=== PATIENT | female | born 1955 | race African-American/Black ===

== ENCOUNTER 2016-09-09 11:45 | Emergency (ER) | payer OTHER ==
[~2016-09-09] VITALS: Ht 167.6 cm; Wt 125.0 kg
[~2016-09-09 11:45] MED LIST: ASPI81TA21 PO; FLAG500T PO; LEVA500T33 PO; LISI20 PO; LORTA5 PO; NORC7.5T PO; PROT40TA PO
[2016-09-09 11:47] VITALS: BP 191/111; PULSE 58; RESP 17; TEMP 97.5; O2SAT 100
[2016-09-09] MEDS ORDERED: SODIUM CHLOR 0.9% 1000 ML INJ 1,000 ML IV SCH (12:01)
[2016-09-09] MEDS ORDERED: FAMOTIDINE 20 MG/2 ML VIAL IV PUSH ONE (12:15)
[2016-09-09] MEDS ORDERED: SODIUM CHLORIDE 0.9% FLUSH 10 ML FLUSH IV FLUSH PRN (12:15)
[2016-09-09] MEDS ORDERED: MORPHINE SULFATE 8 MG/ML INJ IV PUSH ONE (12:15)
[2016-09-09] MEDS ORDERED: ONDANSETRON HCL 4 MG/2 ML VIAL IVP ONE (12:15)
[2016-09-09] MEDS: METOCLOPRAMIDE INJ 10 MG in SODIUM CHLORIDE 0.9% INJ 50 ML IV ONE ×2 (12:45→12:56)
[2016-09-09 12:58] VITALS: BP 182/99; PULSE 62; RESP 15; O2SAT 100
[2016-09-09 13:15] LABS: AUTOMATED NEUTROPHIL # 7.2 TH/MM3 (1.8-7.7); BASOPHIL % 0.2 % (0.0-2.0); EOSINOPHIL # 0.1 TH/MM3 (0-0.4); EOSINOPHIL % 0.9 % (0.0-4.0); HEMO FLAGS DIFF FINAL; LYMPH % 17.4 % (9.0-44.0); LYMPHOCYTE # 1.7 TH/MM3 (1.0-4.8); MEAN CELL VOLUME 78.5 FL (80.0-100.0); MEAN CORPUSCULAR HEMOGLOBIN 25.9 PG (27.0-34.0); MEAN CORPUSCULAR HGB CONC 32.9 % (32.0-36.0); MONO % 6.1 % (0.0-8.0); NEUT % 75.4 % (16.0-70.0); PLATELET COUNT 238 TH/MM3 (150-450); RED BLOOD COUNT 4.71 MIL/MM3 (4.00-5.30); RED CELL DISTRIBUTION WIDTH 16.6 % (11.6-17.2); WHITE BLOOD COUNT 9.6 TH/MM3 (4.0-11.0)
[2016-09-09 13:23] LABS: INTERNATIONAL NORMALIZED RATIO 0.9 RATIO; PROTHROMBIN TIME - PATIENT 10.3 SEC (9.8-11.6)
[2016-09-09 13:34] LABS: ANION GAP 9 MEQ/L (5-15); AST (GOT) 15 U/L (15-37); BICARBONATE 20.7 MEQ/L (21.0-32.0); BLOOD UREA NITROGEN 11 MG/DL (7-18); CHLORIDE 111 MEQ/L (98-107); GLOMERULAR FILTRATION RATE 62 ML/MIN (>89); POTASSIUM 4.2 MEQ/L (3.5-5.1); SODIUM (NA) 141 MEQ/L (136-145)
[2016-09-09 13:35] LABS: ALT (GPT) 27 U/L (10-53)
[2016-09-09 13:36] VITALS: BP 152/72; PULSE 60; RESP 15; O2SAT 99
[2016-09-09 13:39] LABS: ALKALINE PHOSPHATASE 113 U/L (45-117); INDIRECT BILIRUBIN 0.5 MG/DL (0.0-0.8); TOTAL BILIRUBIN ADULT 0.6 MG/DL (0.2-1.0)
[2016-09-09 14:13] LABS: BLOOD, URINE NEG (NEG); COMMENT (UR) CULT NOT INDICATED; CULTURE IF INDICATED CULT NOT INDICATED; GLUCOSE,URINE NEG (NEG); KETONE, URINE NEG (NEG); MUCUS URINE FEW /lpf (OCC); NITRITE,URINE NEG (NEG); SQUAMOUS EPITHELIAL CELL URINE 7 /hpf (0-5); URINE COLOR YELLOW (YELLW/STRAW)
[2016-09-09] MEDS ORDERED: ASPI81TA81 PO (14:32)
[2016-09-09] MEDS ORDERED: AMLO10TA2 PO (14:32)
--- NOTE | 2016-09-09 16:00 | PD ---
HPI Chief Complaint: GI Complaint Time Seen by Provider: 11:55 Travel History International Travel<30 days: No Contact w/Intl Traveler<30days: No Traveled to known affect area: No History of Present Illness HPI Patient is a 60-year-old female comes in complaining of epigastric pain as well as nausea or vomiting. She says this usually happens about once a year. She says she had a tumor removed from that area in 2009. She says she has been told that sometimes that tissue grows in that area and gives her problems. She says this started this morning. She last ate some grits last night. She denies fever, but has had chills. She also reports some diarrhea today. She denies any chest pain or shortness of breath. PFSH Past Medical History Arthritis: Yes Asthma: No Atrial Fibrillation: No Autoimmune Disease: No Blood Disorders: No Anxiety: No Depression: No Heart Rhythm Problems: No Cancer: Yes Cardiac Catheterization: No Cardiovascular Problems: Yes (ENLARGED HEART) High Cholesterol: No Chemotherapy: No Chest Pain: Yes Congestive Heart Failure: No COPD: No Cerebrovascular Accident: Yes (TIA) Diabetes: No Diminished Hearing: No Endocrine: No Gastrointestinal Disorders: Yes GERD: Yes Glaucoma: No Genitourinary: No Headaches: Yes Hiatal Hernia: No Hypertension: Yes Immune Disorder: No Implanted Vascular Access Dvce: Yes Kidney Stones: No Musculoskeletal: No Neurologic: Yes (TIAS X3 2009) Psychiatric: No Reproductive: No Respiratory: No Immunizations Current: Yes Migraines: Yes Radiation Therapy: No Renal Failure: No Seizures: No Sickle Cell Disease: No Sleep Apnea: No Thyroid Disease: No Ulcer: Yes Tetanus Vaccination: < 5 Years PNEUMOCCOCAL Vaccine (Year): 2 ?: Not Menopausal: Yes : 3 Para: 3 Tubal Ligation: Yes Past Surgical History Abdominal Surgery: Yes AICD: No Appendectomy: Yes Arteriovenous Shunt: No Body Medical Devices: HARDWARE RIGHT ANKLE Cardiac Surgery: No Section: Yes (X2 ) Cholecystectomy: Yes Coronary Artery Bypass Graft: No Ear Surgery: No Endocrine Surgery: No Eye Surgery: No Genitourinary Surgery: No Gynecologic Surgery: Yes () Insulin Pump: No Joint Replacement: No Neurologic Surgery: No Oral Surgery: Yes (TEETH REMOVED) Pacemaker: No Thoracic Surgery: No Other Surgery: Yes (GALLBLADDER REMOVED, APPENDECTOMY, ABD TUMOR,) Social History Alcohol Use: No Tobacco Use: No Substance Use: No Allergies-Medications (Allergen,Severity, Reaction): Coded Allergies: Enalapril (Verified Allergy, Severe, Swelling, 09/09/16) Seafood (Verified Allergy, Severe, Swelling, 09/09/16) SILVANO Inhibitors (Verified Allergy, Unknown, SWELLING, 09/09/16) Reported Meds & Prescriptions Reported Meds & Active Scripts Active Reported Aspir-81 (Aspirin) 81 Mg Tabdr 81 Mg PO DAILY Amlodipine (Amlodipine Besylate) 10 Mg Tab 10 Mg PO DAILY Review of Systems Except as stated in HPI: all other systems reviewed are Neg General / Constitutional: No: Fever, Chills HENT: No: Headaches, Lightheadedness Cardiovascular: No: Chest Pain or Discomfort Respiratory: No: Shortness of Breath Gastrointestinal: Positive: Nausea, Vomiting, Diarrhea, Abdominal Pain Genitourinary: No: Dysuria Musculoskeletal: No: Pain Skin: No Rash, No Change in Pigmentation Neurologic: No: Weakness, Dizziness Physical Exam Narrative GENERAL: Awake and alert, in mild distress. SKIN: Focused skin assessment warm/dry. HEAD: Atraumatic. Normocephalic. EYES: Pupils equal and round. No scleral icterus. ENT: Mucous membranes pink and moist. NECK: Trachea midline. No JVD. CARDIOVASCULAR: Regular rate and rhythm. No murmur appreciated. RESPIRATORY: No accessory muscle use. Clear to auscultation. Breath sounds equal bilaterally. GASTROINTESTINAL: Abdomen soft, nondistended. Tender to palpation of the epigastric area. No rebound or guarding. MUSCULOSKELETAL: No obvious deformities. No clubbing. No cyanosis. No edema. NEUROLOGICAL: Awake and alert. No obvious cranial nerve deficits. Motor grossly within normal limits. Normal speech. PSYCHIATRIC: Appropriate mood and affect; insight and judgment normal. Data Data Last Documented VS Vital Signs Date Time Temp Pulse Resp B/P Pulse Ox O2 Delivery O2 Flow Rate FiO2 09/09/16 13:36 60 15 152/72 99 Room Air 09/09/16 11:47 97.5 Orders Basic Metabolic Panel (Bmp) (09/09/16 12:01) Complete Blood Count With Diff (09/09/16 12:01) Lipase (09/09/16 12:01) Lactic Acid (09/09/16 12:01) Prothrombin Time / Inr (Pt) (09/09/16 12:01) Act Partial Throm Time (Ptt) (09/09/16 12:01) Urinalysis - C+S If Indicated (09/09/16 12:01) Ua Includes Microscopic (09/09/16 12:01) Ct Abd/Pel W Iv Contrast(Rout) (09/09/16 12:01) Iv Access Insert/Monitor (09/09/16 12:01) Ecg Monitoring (09/09/16 12:01) Oximetry (09/09/16 12:01) Ondansetron Inj (Zofran Inj) (09/09/16 12:15) Sodium Chlor 0.9% 1000 Ml Inj (Ns 1000 M (09/09/16 12:01) Sodium Chloride 0.9% Flush (Ns Flush) (09/09/16 12:15) Electrocardiogram (09/09/16 12:01) Famotidine Inj (Pepcid Inj) (09/09/16 12:15) Hepatic Functional Panel (09/09/16 12:01) Troponin I (09/09/16 12:01) Morphine Inj (Morphine Inj) (09/09/16 12:15) Metoclopramide Inj (Reglan Inj) (09/09/16 12:45) Iohexol 350 Inj (Omnipaque 350 Inj) (09/09/16 16:19) Acetaminophen (Tylenol) (09/09/16 17:00) Labs Laboratory Tests Test 09/09/16 09/09/16 12:30 13:45 White Blood Count 9.6 TH/MM3 Red Blood Count 4.71 MIL/MM3 Hemoglobin 12.2 GM/DL Hematocrit 37.0 % Mean Corpuscular Volume 78.5 FL Mean Corpuscular Hemoglobin 25.9 PG Mean Corpuscular Hemoglobin 32.9 % Concent Red Cell Distribution Width 16.6 % Platelet Count 238 TH/MM3 Mean Platelet Volume 9.7 FL Neutrophils (%) (Auto) 75.4 % Lymphocytes (%) (Auto) 17.4 % Monocytes (%) (Auto) 6.1 % Eosinophils (%) (Auto) 0.9 % Basophils (%) (Auto) 0.2 % Neutrophils # (Auto) 7.2 TH/MM3 Lymphocytes # (Auto) 1.7 TH/MM3 Monocytes # (Auto) 0.6 TH/MM3 Eosinophils # (Auto) 0.1 TH/MM3 Basophils # (Auto) 0.0 TH/MM3 CBC Comment DIFF FINAL Differential Comment Prothrombin Time 10.3 SEC Prothromb Time International 0.9 RATIO Ratio Activated Partial 26.0 SEC Thromboplast Time Sodium Level 141 MEQ/L Potassium Level 4.2 MEQ/L Chloride Level 111 MEQ/L Carbon Dioxide Level 20.7 MEQ/L Anion Gap 9 MEQ/L Blood Urea Nitrogen 11 MG/DL Creatinine 1.10 MG/DL Estimat Glomerular Filtration 62 ML/MIN Rate Random Glucose 115 MG/DL Lactic Acid Level 2.6 mmol/L Calcium Level 9.3 MG/DL Total Bilirubin 0.6 MG/DL Direct Bilirubin 0.1 MG/DL Indirect Bilirubin 0.5 MG/DL Aspartate Amino Transf 15 U/L (AST/SGOT) Alanine Aminotransferase 27 U/L (ALT/SGPT) Alkaline Phosphatase 113 U/L Troponin I LESS THAN 0.02 NG/ML Total Protein 7.8 GM/DL Albumin 3.8 GM/DL Lipase 175 U/L Urine Color YELLOW Urine Turbidity HAZY Urine pH 6.0 Urine Specific [place] 1.028 Urine Protein 30 mg/dL Urine Glucose (UA) NEG mg/dL Urine Ketones NEG mg/dL Urine Occult Blood NEG Urine Nitrite NEG Urine Bilirubin NEG Urine Urobilinogen LESS THAN 2.0 MG/DL Urine Leukocyte Esterase NEG Urine RBC LESS THAN 1 /hpf Urine WBC 1 /hpf Urine Squamous Epithelial 7 /hpf Cells Urine Mucus FEW /lpf Microscopic Urinalysis Comment CULT NOT INDICATED MDM Medical Decision Making Medical Screen Exam Complete: Yes Emergency Medical Condition: Yes Medical Record Reviewed: Yes Interpretation(s) ECG shows sinus bradycardia at 54, no ST elevation or depression, normal intervals Differential Diagnosis Gastritis versus gastroenteritis versus SBO versus pancreatitis Narrative Course Patient is a 60-year-old female comes in complaining of abdominal pain with nausea and vomiting. Exam shows epigastric pain. IV established, labs sent. Labs show slight elevation in her lactic acid is 2.6. There are no other abnormalities. CT abdomen and pelvis performed shows no acute abnormalities. Last 24 hours Impressions Abdomen/Pelvis CT 09/09/16 1201 Signed Impressions: Service Date/Time: Friday, September 09, 2016 16:10 - CONCLUSION: 1. 3.7 cm simple cyst in the left kidney. 2. The patient is post cholecystectomy. 3. There is been previous small bowel resection. 4. No definite abnormality to explain the patient's epigastric pain identified. Rolando Harper MD Patient given Zofran, famotidine, morphine. She reports feeling better. She is able to drink water. She'll be discharged home to follow-up with her doctors. She is advised to eat a bland diet. Advised to drink plenty of fluids. Advised to return as needed for any worsening symptoms. Diagnosis Primary Impression: Nausea & vomiting Qualified Code: R11.2 - Non-intractable vomiting with nausea, unspecified vomiting type Patient Instructions: Abdominal Pain (ED), Acute Nausea and Vomiting (ED), General Instructions Additional Instructions: Follow-up with her doctors. Drink plenty of fluids. Eat a bland diet. Return to the emergency department as needed for any worsening symptoms. Scripts Ondansetron Odt (Zofran Odt)4 Mg Tab4 Mg SL Q6HR PRN (Nausea/Vomiting) #10 TAB Ref 0 Prov:Bernice No MD 09/09/16 Disposition: 01 DISCHARGE HOME Condition: Stable Bernice No MD Sep 09, 2016 16:00
[2016-09-09] MEDS ORDERED: IOHEXOL 350 MG/ML 50 ML BTL (for RAD DIAG) IV ONE (16:19)
--- NOTE | 2016-09-09 16:26 | RADRPT ---
EXAM DATE/TIME: 09/09/2016 16:10 [facility] COMPARISON: CT ABDOMEN & PELVIS W/O CONTRAST, March 19, 2013, 4:29. INDICATIONS : Epigastric pain with nausea and vomiting today. IV CONTRAST: 82 cc Omnipaque 350 (iohexol) IV ORAL CONTRAST: No oral contrast ingested. RADIATION DOSE: 19.03 CTDIvol (mGy) MEDICAL HISTORY : Stroke. Hypertension. Cardiovascular disease SURGICAL HISTORY : Appendectomy. Cholecystectomy. ENCOUNTER: Initial ACUITY: 1 day PAIN SCALE: 5/10 LOCATION: epigastric abdomen TECHNIQUE: Volumetric scanning of the abdomen and pelvis was performed. Using automated exposure control and ad justment of the mA and/or kV according to patient size, radiation dose was kept as low as reasonably achievable to obtain optimal diagnostic quality images. DICOM format image data is available electro nically for review and comparison. FINDINGS: The limited portion of the lung base visualized is clear. The appearance of the liver, spleen, pancreas, adrenal glands and right kidney is within normal limit s. Examination of the left kidney demonstrates a 3.7 cm simple cyst. The patient is post cholecystect dorie. There is no free peritoneal air. No free intraperitoneal fluid is identified. There is no retroperito cristhian lymphadenopathy. The abdominal aorta is normal in caliber. The visualized loops of small and large bowel in the upper abdomen demonstrate postsurgical changes i n the small bowel but are otherwise unremarkable.. There is no free fluid in the pelvis. No iliac or inguinal adenopathy is seen. The reproductive organ s are intact. The visualized loops of small and large bowel are unremarkable in appearance. CONCLUSION: 1. 3.7 cm simple cyst in the left kidney. 2. The patient is post cholecystectomy. 3. There is been previous small bowel resection. 4. No definite abnormality to explain the patient's epigastric pain identified. Rolando Harper MD on September 09, 2016 at 16:21 Board Certified Radiologist. This report was verified electronically.
[2016-09-09] MEDS ORDERED: ACETAMINOPHEN 325 MG TAB PO ONE (17:00)
[2016-09-09] MEDS ORDERED: ZOFR4TAB3 SL (17:06)
[2016-09-09 17:12] VITALS: BP 165/88
--- NOTE | 2016-09-10 12:43 | EKG ---
Date Performed: 09/09/2016 Time Performed: 12:53:06 PTAGE: 60 years EKG: SINUS BRADYCARDIA POSSIBLE LEFT ATRIAL ENLARGEMENT Compared to prior tracing no significant change BORDERLINE ECG PREVIOUS TRACING : 12/20/2012 14.03 DOCTOR: Jose Davies Interpretating Date/Time 09/10/2016 12:40:24
== END 2016-09-09 17:19 | disposition home or self-care (01) ==
LOC: NEPD 11:45
DX: R11.2 Nausea with vomiting, unspecified (principal); R10.13 Epigastric pain; R19.7 Diarrhea, unspecified; R94.31 Abnormal electrocardiogram [ECG] [EKG]; I10 Essential (primary) hypertension; Z87.39 Personal history of other diseases of the musculoskeletal system and connective tissue; Z86.79 Personal history of other diseases of the circulatory system; Z87.19 Personal history of other diseases of the digestive system; Z86.69 Personal history of other diseases of the nervous system and sense organs
CPT/HCPCS: 74177; 80048; 80076; 81001; 83605; 83690; 84484; 85025; 85610; 85730; 93005; 96361; 96374; 96375; 99285; J2270; J2405; J7030; Q9967; J2765

== ENCOUNTER 2016-12-12 17:37 | Emergency (ER) | payer OTHER, MEDICAID ==
[~2016-12-12] VITALS: Ht 167.6 cm; Wt 123.0 kg
[~2016-12-12 17:37] MED LIST changes: +AMLO10TA2 PO; -ASPI81TA21 PO; +ASPI81TA81 PO; -FLAG500T PO; -LEVA500T33 PO; -LISI20 PO; -LORTA5 PO; -NORC7.5T PO; -PROT40TA PO; +ZOFR4TAB3 SL
[2016-12-12 17:39] VITALS: BP 162/91; PULSE 70; RESP 18; TEMP 98.6; O2SAT 98
--- NOTE | 2016-12-12 18:34 | PD ---
HPI Chief Complaint: Musculoskeletal Complaint Time Seen by Provider: 18:33 Travel History International Travel<30 days: No Contact w/Intl Traveler<30days: No Traveled to known affect area: No History of Present Illness HPI 61-year-old female presents to the emergency department for evaluation a right knee and right ankle pain after a trip and fall last night. Patient states that she twisted her leg and has been having difficulty ambulating on it today. She reports a constant, achy pain in her right knee, exacerbated with ambulation. She states that she is unable to bear weight on her right ankle due to the pain. Rates the pain a 6 out of 10. The pain does not radiate anywhere. She did not strike her head or lose consciousness. She has no other symptoms to report. PFSH Past Medical History Arthritis: Yes Asthma: No Atrial Fibrillation: No Autoimmune Disease: No Blood Disorders: No Anxiety: No Depression: No Heart Rhythm Problems: No Cancer: Yes Cardiac Catheterization: No Cardiovascular Problems: Yes (ENLARGED HEART) High Cholesterol: No Chemotherapy: No Chest Pain: Yes Congestive Heart Failure: No COPD: No Cerebrovascular Accident: Yes (TIA) Diabetes: No Diminished Hearing: No Endocrine: No Gastrointestinal Disorders: Yes GERD: Yes Glaucoma: No Genitourinary: No Headaches: Yes Hiatal Hernia: No Hypertension: Yes Immune Disorder: No Implanted Vascular Access Dvce: Yes Kidney Stones: No Musculoskeletal: No Neurologic: Yes (TIAS X3 2009) Psychiatric: No Reproductive: No Respiratory: No Immunizations Current: Yes Migraines: Yes Radiation Therapy: No Renal Failure: No Seizures: No Sickle Cell Disease: No Sleep Apnea: No Thyroid Disease: No Ulcer: Yes PNEUMOCCOCAL Vaccine (Year): 2 Menopausal: Yes : 3 Para: 3 Tubal Ligation: Yes Past Surgical History Abdominal Surgery: Yes AICD: No Appendectomy: Yes Arteriovenous Shunt: No Body Medical Devices: HARDWARE RIGHT ANKLE Cardiac Surgery: No Section: Yes (X2 ) Cholecystectomy: Yes Coronary Artery Bypass Graft: No Ear Surgery: No Endocrine Surgery: No Eye Surgery: No Genitourinary Surgery: No Gynecologic Surgery: Yes () Insulin Pump: No Joint Replacement: No Neurologic Surgery: No Oral Surgery: Yes (TEETH REMOVED) Pacemaker: No Thoracic Surgery: No Other Surgery: Yes (GALLBLADDER REMOVED, APPENDECTOMY, ABD TUMOR,) Social History Alcohol Use: No Tobacco Use: No Substance Use: No Allergies-Medications (Allergen,Severity, Reaction): Coded Allergies: Fish Containing Products (Unverified Allergy, Severe, Swelling, 12/12/16) enalaprilat (Unverified Allergy, Severe, Swelling, 12/12/16) benazepril (Unverified Allergy, Unknown, SWELLING, 12/12/16) captopril (Unverified Allergy, Unknown, SWELLING, 12/12/16) fosinopril (Unverified Allergy, Unknown, SWELLING, 12/12/16) lisinopril (Unverified Allergy, Unknown, SWELLING, 12/12/16) quinapril (Unverified Allergy, Unknown, SWELLING, 12/12/16) Reported Meds & Prescriptions Reported Meds & Active Scripts Active Zofran Odt (Ondansetron Odt) 4 Mg Tab 4 Mg SL Q6HR PRN Reported Aspir-81 (Aspirin) 81 Mg Tabdr 81 Mg PO DAILY Amlodipine (Amlodipine Besylate) 10 Mg Tab 10 Mg PO DAILY Review of Systems Except as stated in HPI: all other systems reviewed are Neg Physical Exam Narrative GENERAL: Well-nourished female patient, ambulatory with an antalgic gait, in no acute distress SKIN: Focused skin assessment warm/dry. HEAD: Atraumatic. Normocephalic. EYES: Pupils equal and round. No scleral icterus. No injection or drainage. ENT: No nasal bleeding or discharge. Mucous membranes pink and moist. NECK: Trachea midline. No JVD. CARDIOVASCULAR: Regular rate and rhythm. No murmur appreciated. RESPIRATORY: No accessory muscle use. Clear to auscultation. Breath sounds equal bilaterally. GASTROINTESTINAL: Abdomen soft, non-tender, nondistended. Hepatic and splenic margins not palpable. MUSCULOSKELETAL: No obvious deformities. No clubbing. No cyanosis. No edema. Tenderness elicited palpation of the anterior right knee. No crepitus. No deformity. Patient fully flex and extend the knee without difficulty. There is also tenderness elicited palpation of the lateral aspect of the right ankle. No deformity. Patient can wiggle the toes of the affected foot. Distal pulses are palpable. Cap refill within normal limits. NEUROLOGICAL: Awake and alert. No obvious cranial nerve deficits. Motor grossly within normal limits. Normal speech. PSYCHIATRIC: Appropriate mood and affect; insight and judgment normal. Data Data Last Documented VS Vital Signs Date Time Temp Pulse Resp B/P (MAP) Pulse Ox O2 Delivery O2 Flow Rate FiO2 12/12/16 17:39 98.6 70 18 162/91 (114) 98 Room Air Orders Orders Knee, Complete (4vws) (12/12/16 ) Ankle, Complete ([id number]) (12/12/16 ) MDM Medical Decision Making Medical Screen Exam Complete: Yes Emergency Medical Condition: Yes Medical Record Reviewed: Yes Differential Diagnosis Fracture versus sprain versus contusion versus dislocation Narrative Course 61 year-old female presents to emergency room for evaluation right knee and ankle pain following a trip and fall that occurred last evening. Physical exam is overall reassuring. Patient does have an antalgic gait, however she is able to ambulate. X-ray imaging will be ordered of the right knee and ankle. 1853 patient is signed out to CLARY Scott. Disposition will depend her judgment. Condition: Stable Aruna Grigsby Dec 12, 2016 18:34
--- NOTE | 2016-12-12 19:41 | RADRPT ---
EXAM DATE/TIME: 12/12/2016 19:10 [facility] COMPARISON: No previous studies available for comparison. INDICATIONS : Right knee pain after fall. MEDICAL HISTORY : Stroke. Hypertension. Cardiovascular disease. SURGICAL HISTORY : Appendectomy. Cholecystectomy. ORIF right ankle. ENCOUNTER: Initial ACUITY: 2 days PAIN SCORE: 7/10 LOCATION: Right knee. FINDINGS: Four view examination of the right knee demonstrates no evidence of fracture or dislocation. Bony mi neralization is normal. The articular surfaces are intact. The suprapatellar soft tissues have a no rmal configuration. Tricompartment degenerative changes appreciated CONCLUSION: Degenerative changes. No acute bony injury. Howard Canales MD on December 12, 2016 at 19:40 Board Certified Radiologist. This report was verified electronically.
--- NOTE | 2016-12-12 19:41 | RADRPT ---
EXAM DATE/TIME: 12/12/2016 19:04 [facility] COMPARISON: No previous studies available for comparison. INDICATIONS : Right ankle pain after fall last night. MEDICAL HISTORY : Stroke. Hypertension. Cardiovascular disease SURGICAL HISTORY : Appendectomy. Cholecystectomy. ORIF right ankle. ENCOUNTER: Initial ACUITY: 2 days PAIN SCORE: 7/10 LOCATION: Right ankle. FINDINGS: There is soft tissue swelling laterally. There is a side plate and multiple screws across the distal fibula into the lateral malleolus prior surgical intervention. Corticated calcific ation is noted off the medial malleolus representing a remote nonunited fracture. There is no acute b mary injury and no evidence dislocation. Calcaneal spurs are noted at the insertion of plantar aponeur osis and Achilles tendon CONCLUSION: Soft tissue swelling laterally. No acute bony injury. Howard Canales MD on December 12, 2016 at 19:38 Board Certified Radiologist. This report was verified electronically.
[2016-12-12] MEDS ORDERED: TYLETAB34 PO (19:50)
--- NOTE | 2016-12-12 19:50 | PD ---
Physical Exam Date Seen by Provider: Dec 12, 2016 Time Seen by Provider: 19:47 Narrative For full history and physical examination please see previous provider's note. I assumed care of this patient change of shift. At that time imaging was pending. Data Data Last Documented VS Vital Signs Date Time Temp Pulse Resp B/P (MAP) Pulse Ox O2 Delivery O2 Flow Rate FiO2 12/12/16 17:39 98.6 70 18 162/91 (114) 98 Room Air Orders Orders Knee, Complete (4vws) (12/12/16 ) Ankle, Complete ([id number]) (12/12/16 ) MDM Medical Record Reviewed: Yes Supervised Visit with SANIA: No Narrative Course Patient presented for evaluation of right ankle and knee pain after twisting it yesterday. Patient is neurovascularly intact, there are no focal deficits noted on exam. Imaging was reviewed, there is soft tissue swelling on the lateral aspect of the right ankle, there is no acute bony abnormalities noted in the knee or ankle. Imaging was read by the radiologist. Patient has a walker at home that she has been using to ambulate to keep weight off of her right ankle, she will continue to use this. She was encouraged to rest, ice, elevate her extremity and continue gentle range of motion exercises. She was encouraged to increase weightbearing as tolerated and to follow-up with her primary doctor. Other encouraged to return to emergency department for any new or worsening symptoms. Patient will be placed in an Rebel wrap to her right ankle to help alleviate swelling. Patient verbalized understanding of these instructions. Patient stable for discharge. Diagnosis Primary Impression: Ankle sprain Qualified Codes: S93.401A - Sprain of unspecified ligament of right ankle, initial encounter Referrals: Primary Care Physician 3 days Patient Instructions: Ankle Exercises (GEN), Ankle Sprain (ED), General Instructions Additional Instruction: Rest, ice, elevate extremity Increased weightbearing as tolerated Follow-up with your primary doctor Take medications as needed and as directed for pain Return to emergency department for any new or worsening symptoms Med/Other Pt SpecificInfo: Prescription(s) given Scripts Acetaminophen-Codeine (Tylenol-Codeine #3) 300-30 mg Tab 1 TAB PO Q4H Y for PAIN, #12 TAB 0 Refills Prov: Yolette Gavin 12/12/16 Disposition: 01 DISCHARGE HOME Condition: Stable Yolette Gavin Dec 12, 2016 19:50
== END 2016-12-12 20:00 | disposition home or self-care (01) ==
LOC: NEPK 17:37
DX: S93.401A Sprain of unspecified ligament of right ankle, initial encounter (principal); Z86.73 Personal history of transient ischemic attack (TIA), and cerebral infarction without residual deficits; K21.9 Gastro-esophageal reflux disease without esophagitis; I10 Essential (primary) hypertension; W01.0XXA Fall on same level from slipping, tripping and stumbling without subsequent striking against object, initial encounter
CPT/HCPCS: 73564; 73610; 99283

== ENCOUNTER 2017-10-25 15:52 | Observation (INO) ==
[2017-10-25] MEDS ORDERED: Aspirin 325 MG Tablet PO ONE (16:33)
--- NOTE | 2017-10-25 17:09 | XR ---
EXAM DATE: 10/25/2017 5:03 PM EDT AGE/SEX: 62 years / Female INDICATIONS: Chest pain. CLINICAL DATA: This is the patient's initial encounter. Patient reports that signs and symptoms have been present for 3 days and indicates a pain score of 7/10. MEDICAL/SURGICAL HISTORY: None. None. COMPARISON: [facility], XR CHEST PA AND LAT, 07/01/2014. . FINDINGS: A single AP view of the chest demonstrates the lungs to be symmetrically aerated without evidence of mass, infiltrate or effusion. The cardiomediastinal contours are unremarkable. Osseous structures a re intact. CONCLUSION: No acute disease Electronically signed by: Rob Reyna MD 10/25/2017 5:08 PM EDT
[2017-10-25 17:33] LABS: Baso % (Auto) 0.5 % (0.0-2.0); Eos # (Auto) 0.1 th/mm3 (0.0-0.4); Eos % (Auto) 1.4 % (0.0-4.0); Hemoglobin 11.1 gm/dL (11.6-15.3); Lymph # (Auto) 2.7 th/mm3 (1.0-4.8); Lymph % (Auto) 37.5 % (9.0-44.0); Mean Corpuscular HGB Conc 31.8 % (32.0-36.0); Mean Corpuscular Hemoglobin 26.1 pg (27.0-34.0); Mean Corpuscular Volume 82.1 fL (80.0-100.0); Mean Platelet Volume 9.4 fL (7.0-11.0); Mono # (Auto) 0.4 th/mm3 (0.0-0.9); Mono % (Auto) 6.1 % (0.0-8.0); Neut # (Auto) 3.9 th/mm3 (1.8-7.7); Neut % (Auto) 54.5 % (16.0-70.0); Platelet Count 224 th/mm3 (150-450); Red Blood Count 4.26 mil/mm3 (4.00-5.30); Red Cell Distribution Width 16.8 % (11.6-17.2); White Blood Count 7.1 th/mm3 (4.0-11.0)
[2017-10-25 17:50] LABS: Activated Partial Thrombo Time 26.4 sec (24.3-30.1); Prothrombin Time 10.4 sec (9.8-11.6)
[2017-10-25 17:53] LABS: Albumin 3.7 g/dL (3.4-5.0); Anion Gap 8 meq/L (5-15); Aspartate Aminotransferase 16 U/L (15-37); Blood Urea Nitrogen 10 mg/dL (7-18); Calcium 8.5 mg/dL (8.5-10.1); Carbon Dioxide 28.3 meq/L (21.0-32.0); Chloride 108 meq/L (98-107); Glomerular Filtration Rate 66 mL/min (>89); Glucose,Random 75 mg/dL (74-106); Lipase 83 U/L (73-393); Potassium 3.5 meq/L (3.5-5.1); Sodium 144 meq/L (136-145)
[2017-10-25] MEDS ORDERED: Acetaminophen 325 MG Tablet PO ONE (17:54)
[2017-10-25] MEDS ORDERED: Morphine Inj 4 MG/ML Vial IV.PUSH ONE (17:54)
[2017-10-25 17:59] LABS: Alanine Aminotransferase 29 U/L (10-53); Alkaline Phosphatase 102 U/L (45-117); Total Protein 7.7 g/dL (6.4-8.2)
[2017-10-25 18:02] LABS: Creatine Kinase 75 U/L (26-192)
[2017-10-25 18:08] LABS: D-Dimer 1.04 mg/L FEU (0.00-0.50)
[2017-10-25] MEDS ORDERED: Heparin 10,000 UNITS/10 ML Vial (for IV use) IV.PUSH STA (19:05)
[2017-10-25] MEDS ORDERED: Heparin Drip 25,000 UNIT/250 ML BAG IV.CONT PRN (19:05)
--- NOTE | 2017-10-25 19:12 | ED ---
HPI General Chief Complaint: Chest Pain Stated Complaint: chest pain Time Seen by Provider: 10/25/17 16:05 Source: patient and family Mode of arrival: ambulatory Limitations: no limitations History of Present Illness HPI narrative: 62-year-old female that presents to the ED for evaluation of chest pain that goes to her left arm and comes and goes. Per patient it comes and goes and is sharp on the mid chest. Per patient she denies anything that makes it better or worse. She did took an aspirin. She does have a history of high blood pressure. Per patient she was told in March that she had a stress test that she could require a heart cath secondary to her symptoms of the time but per patient because 1 of her family members having a heart cath as well as another one from a heart attack during that time she declined having the heart cath. She is been doing well except she is been having chest pains on and off since but worse since yesterday. Per patient the pain has progressively getting worse. She denies any recent travel or flights. No recent surgeries. No history of gallbladder disease. No nausea or vomiting. She does feel short of breath when she gets this. She states compliance with her amlodipine for her blood pressure. She cannot really remember the name of her supermarket manager but states that she got the stress test done as an outpatient at [facility]. She has not seen the supermarket manager since having the stress test and been told that she might be a heart cath. Complete Quality Measures for STEMI Alert Patients Related Data Home Medications Medication Instructions Recorded Confirmed amlodipine 10 mg PO DAILY 10/25/17 10/25/17 Allergies Allergy/AdvReac Type Severity Reaction Status Date / Time enalaprilat Allergy Severe Swelling Verified 10/25/17 19:08 Fish Containing Products Allergy Severe Swelling Verified 10/25/17 19:08 benazepril Allergy Unknown SWELLING Verified 10/25/17 19:08 captopril Allergy Unknown SWELLING Verified 10/25/17 19:08 fosinopril Allergy Unknown SWELLING Verified 10/25/17 19:08 lisinopril Allergy Unknown SWELLING Verified 10/25/17 19:08 quinapril Allergy Unknown SWELLING Verified 10/25/17 19:08 Review of Systems ROS: all other systems reviewed are negative [facility] Medical History Medical History Cholecystectomy planned (Acute) Hypertension (Acute) Surgical History Surgical History History of ankle surgery (Acute) Hx of appendectomy (Acute) Social History Social History Smoking Status: Never smoker How Often Do You Have a Drink Containing Alcohol: Never Recent Travel in [facility] within the Last 8 Weeks: No Recent Out of Country Travel within the Last 8 Weeks: No Immunization History Tetanus Immunization: Unsure Hx Influenza Vaccine This Season: No Exam Narrative Exam Narrative: GENERAL: Well appearing SKIN: Focused skin assessment warm/dry. HEAD: Atraumatic. Normocephalic. EYES: Pupils equal and round. No scleral icterus. No injection or drainage. ENT: No nasal bleeding or discharge. Mucous membranes pink and moist. Tongue is midline. No uvula deviation. NECK: Trachea midline. No JVD. CARDIOVASCULAR: Regular rate and rhythm. No murmur appreciated. RESPIRATORY: No accessory muscle use. Clear to auscultation. Breath sounds equal bilaterally. GASTROINTESTINAL: Abdomen soft, non-tender, nondistended. Hepatic and splenic margins not palpable. MUSCULOSKELETAL: No obvious deformities. No clubbing. No cyanosis. No edema. Full range of motion of the upper and lower extremities bilaterally. 2+ pulses bilaterally. NEUROLOGICAL: Awake and alert. No obvious cranial nerve deficits. Motor grossly within normal limits. Normal speech. PSYCHIATRIC: Appropriate mood and affect; insight and judgment normal. Course Initial Documented Vital Signs Temperature 98 F 10/25/17 15:59 Pulse Rate 54 L 10/25/17 15:59 Respiratory Rate 20 10/25/17 15:59 Blood Pressure 179/97 H 10/25/17 15:59 Pulse Oximetry 99 10/25/17 15:59 Last Documented Vital Signs Temperature 98 F 10/25/17 15:59 Pulse Rate 58 L 10/25/17 18:04 Respiratory Rate 16 10/25/17 18:04 Blood Pressure 171/102 H 10/25/17 18:04 Pulse Oximetry 100 10/25/17 18:04 Medical Decision Making MDM Narrative Medical decision making narrative: 62-year-old female that presents to the ED for evaluation of left-sided chest pain. Patient was properly examined and was found to have signs and symptoms consistent appears to be possible unstable angina. Will try to obtain records from [facility] where she had a stress test outpatient. Labs and imaging were ordered. Labs and imaging did not show any sign of acute disease alert and elevated d-dimer. CTA was ordered. CT was negative for pulmonary embolism. Patient was given aspirin and nitroglycerin here with improvement of some of the symptoms. Patient still had a headache and some of the chest pains that she was given morphine. I was able to get the report from the [facility] stress test study. The stress test per the impression done there showed moderate large anterior reversible defect, finding consistent with large territories of ischemia in the LAD distribution. Case was discussed with my attending Dr. Richardson who agrees the patient should be admitted. Case discussed with Dr. Almeida for cardiology who recommends admission to medicine, start patient on beta-kishan, Nitropaste, heparin. This was discussed with the patient and family who are aware of need for further evaluation and likely heart cath. They agree with this. Case discussed with Dr. Art who agrees to admission to his service. Medical Screen Exam Complete: Yes Emergency Medical Condition: Yes Differential Diagnosis Differential Diagnosis: ACS versus PE versus typical chest pain versus angina Medical Records Medical records reviewed: Yes I reviewed the patient's medical records. Lab Data Lab results reviewed: Yes I reviewed the patient's lab results. Lab results narrative: Troponin and CK-MB negative. D-dimer slightly positive in the ones. Result diagrams: 10/25/17 19:57 10/25/17 16:40 Lab Results 10/25/17 10/25/17 10/25/17 Range/Units 16:40 16:40 16:40 WBC 7.1 (4.0-11.0) th/mm3 RBC 4.26 (4.00-5.30) mil/mm3 Hgb 11.1 L (11.6-15.3) gm/dL Hct 35.0 (35.0-46.0) % MCV 82.1 (80.0-100.0) fL MCH 26.1 L (27.0-34.0) pg MCHC 31.8 L (32.0-36.0) % RDW 16.8 (11.6-17.2) % Plt Count 224 (150-450) th/mm3 MPV 9.4 (7.0-11.0) fL Neut % (Auto) 54.5 (16.0-70.0) % Lymph % (Auto) 37.5 (9.0-44.0) % Bracken % (Auto) 6.1 (0.0-8.0) % Eos % (Auto) 1.4 (0.0-4.0) % Baso % (Auto) 0.5 (0.0-2.0) % Neut # (Auto) 3.9 (1.8-7.7) th/mm3 Lymph # (Auto) 2.7 (1.0-4.8) th/mm3 Bracken # (Auto) 0.4 (0.0-0.9) th/mm3 Eos # (Auto) 0.1 (0.0-0.4) th/mm3 Baso # (Auto) 0.0 (0.0-0.2) th/mm3 WBC Differential . Differential Comment Auto diff final PT 10.4 (9.8-11.6) sec INR 1.0 Ratio APTT 26.4 (24.3-30.1) sec D-Dimer Quant (PE/DVT) 1.04 H (0.00-0.50) mg/L FEU Sodium 144 (136-145) meq/L Potassium 3.5 (3.5-5.1) meq/L Chloride 108 H (98-107) meq/L Carbon Dioxide 28.3 (21.0-32.0) meq/L Anion Gap 8 (5-15) meq/L BUN 10 (7-18) mg/dL Creatinine 1.03 H (0.50-1.00) mg/dL Estimated GFR 66 L (>89) mL/min Random Glucose 75 (74-106) mg/dL Calcium 8.5 (8.5-10.1) mg/dL Total Bilirubin 0.5 (0.2-1.0) mg/dL AST 16 (15-37) U/L ALT 29 (10-53) U/L Alkaline Phosphatase 102 (45-117) U/L Total Creatine Kinase 75 (26-192) U/L Troponin I Less than 0.02 L (0.02-0.05) ng/mL Total Protein 7.7 (6.4-8.2) g/dL Albumin 3.7 (3.4-5.0) g/dL Lipase 83 (73-393) U/L 10/25/17 10/25/17 Range/Units 19:05 19:57 WBC 7.0 (4.0-11.0) th/mm3 RBC 3.98 L (4.00-5.30) mil/mm3 Hgb 10.4 L (11.6-15.3) gm/dL Hct 32.0 L (35.0-46.0) % MCV 80.6 (80.0-100.0) fL MCH 26.2 L (27.0-34.0) pg MCHC 32.5 (32.0-36.0) % RDW 17.3 H (11.6-17.2) % Plt Count 207 (150-450) th/mm3 MPV 9.1 (7.0-11.0) fL Neut % (Auto) (16.0-70.0) % Lymph % (Auto) (9.0-44.0) % Bracken % (Auto) (0.0-8.0) % Eos % (Auto) (0.0-4.0) % Baso % (Auto) (0.0-2.0) % Neut # (Auto) (1.8-7.7) th/mm3 Lymph # (Auto) (1.0-4.8) th/mm3 Bracken # (Auto) (0.0-0.9) th/mm3 Eos # (Auto) (0.0-0.4) th/mm3 Baso # (Auto) (0.0-0.2) th/mm3 WBC Differential Differential Comment PT (9.8-11.6) sec INR Ratio APTT (24.3-30.1) sec D-Dimer Quant (PE/DVT) (0.00-0.50) mg/L FEU Sodium (136-145) meq/L Potassium (3.5-5.1) meq/L Chloride (98-107) meq/L Carbon Dioxide (21.0-32.0) meq/L Anion Gap (5-15) meq/L BUN (7-18) mg/dL Creatinine (0.50-1.00) mg/dL Estimated GFR (>89) mL/min Random Glucose (74-106) mg/dL Calcium (8.5-10.1) mg/dL Total Bilirubin (0.2-1.0) mg/dL AST (15-37) U/L ALT (10-53) U/L Alkaline Phosphatase (45-117) U/L Total Creatine Kinase 105 (26-192) U/L Troponin I Less than 0.02 L (0.02-0.05) ng/mL Total Protein (6.4-8.2) g/dL Albumin (3.4-5.0) g/dL Lipase (73-393) U/L Imaging Data Attestation: I personally reviewed and interpreted this imaging study as follows : Radiologist's impression: Chest X-Ray 10/25/17 16:33 CONCLUSION: No acute disease Chest CTA 10/25/17 18:09 CONCLUSION: No pulmonary embolus. ECG Data Attestation: I personally reviewed and interpreted this ECG as follows: Interpretation: EKG shows sinus bradycardia but no sign of acute ischemia or arrhythmia read by me and attending. No ST elevations. Heart rate of 54. Discharge Plan Discharge Disposition Patient Disposition: 30 Still Patient Discharge Details Diagnosis: Unstable angina Physicians Team ED Provider: Jasbir Richardson ED Midlevel Provider: Wilver Pardo Primary Care Provider: Tiffany Whitaker Attending Provider: Lazaro Art Status ED Status: Admitted Patient
[2017-10-25 20:14] LABS: Hemoglobin 10.4 gm/dL (11.6-15.3); Mean Corpuscular HGB Conc 32.5 % (32.0-36.0); Mean Corpuscular Hemoglobin 26.2 pg (27.0-34.0); Mean Corpuscular Volume 80.6 fL (80.0-100.0); Mean Platelet Volume 9.1 fL (7.0-11.0); Platelet Count 207 th/mm3 (150-450); Red Blood Count 3.98 mil/mm3 (4.00-5.30); Red Cell Distribution Width 17.3 % (11.6-17.2)
--- NOTE | 2017-10-25 20:49 | CT ---
EXAM DATE: 10/25/2017 8:45 PM EDT AGE/SEX: 62 years / Female INDICATIONS: Intermittent stabbing chest pain with shortness of breath. CLINICAL DATA: This is the patient's initial encounter. Patient reports that signs and symptoms have been present for 2 days and indicates a pain score of 3/10. MEDICAL/SURGICAL HISTORY: Hypertension. Appendectomy. RADIATION DOSE: 10.71 CTDI (mGy) COMPARISON: [facility], CTA CHEST W 3D RECON, 06/18/2010. . TECHNIQUE: Volumetric scanning was performed using a multi-row detector CT scanner during bolus infu marina of 75 ml Omnipaque 350 (iohexol) nonionic water-soluble contrast as a single exam dose. The florentin a was post processed with a variety of visualization algorithms including full volume maximum intensi ty projection and sliding thin slab reformation. Using automated exposure control and adjustment of t he mA and/or kV according to patient size, radiation dose was kept as low as reasonably achievable to obtain optimal diagnostic quality images. DICOM format image data is available electronically for r eview and comparison. FINDINGS: Pulmonary Arteries: No filling defects are seen in the pulmonary arteries out to the subsegmental ve ssels. The left and right pulmonary arteries are normal in diameter. Lung: No infiltrates seen. There is minimal emphysematous change in the right upper lung. Effusion: None. Mediastinum: No evidence of mediastinal or hilar adenopathy. Other: The axilla is unremarkable. CONCLUSION: No pulmonary embolus. Electronically signed by: Rob Chery MD 10/25/2017 8:47 PM EDT
[2017-10-25 20:55] LABS: Creatine Kinase 105 U/L (26-192)
[2017-10-25] MEDS ORDERED: Bisacodyl 10 MG Supp RECTAL PRN (21:24)
--- NOTE | 2017-10-25 22:35 | P.HPIM ---
History of Present Illness Primary Care Physician: Tiffany Whitaker History of Present Illness: 62 y/o female with a history of HLD, and HTN presented to the ED with complaints of chest pain. Patient states she has been having intermitting, 10/10 , mid sternal chest pain, with radiation to left arm, with associated sob and weakness since March. She had a stress test in March which showed moderately large anterior reversible defect according to [facility] records, at this time she was scared to have a cath done and declined it and never followed up. Her brother during a cardiac cath and it scared her to have one done. Since then she has been have the chest pain and just dealing with in. She is not very compliant with her BP and cholesterol Meds at home. Denies any dizziness, fever, chills, nausea or vomiting. Review of Systems All other systems reviewed negative except as stated [facility] - History History Provided By: Patient - Medical History Medical History: Medical History (Last Updated 10/25/17 @ 23:23 by CLARY Luna) HLD (hyperlipidemia) Hypertension - Surgical History Surgical History: Surgical History (Last Updated 10/25/17 @ 23:22 by CLARY Luna) Cholecystectomy planned History of ankle surgery Hx of appendectomy - Family History Family History: Family History (Last Updated 10/25/17 @ 23:22 by CLARY Luna) Other Hypertension - Tobacco History Smoking Status: Never smoker - Alcohol History How Often Do You Have a Drink Containing Alcohol: Never - Travel History Recent Travel in the [place] Within the Last 8 Weeks: No Recent Travel Out of the Country Within the Last 8 Weeks: No - Immunization History Tetanus Immunization: Unsure Hx Influenza Vaccine This Season: No Medications and Allergies Active Medications: Active Medications Al Hydroxide/Mg Hydroxide (Milk Of Paula Librando) 30 ml PO Q12H PRN PRN Reason: Mild Constipation Amlodipine Besylate (Norvasc) 10 mg PO DAILY [place] Aspirin (Ecotrin) 81 mg PO DAILY [place] Bisacodyl (Dulcolax Supp) 10 mg RECTAL DAILY PRN PRN Reason: SEVERE CONSITIPATION Carvedilol (Coreg) 3.125 mg PO BID [place] Last Admin: 10/25/17 21:43 Dose: 3.125 mg Heparin Sodium/Dextrose (Heparin/D5w 25,000 U/250 Ml) 25,000 unit in 250 mls @ 0 mls/hr IV.CONT TITRATE PRN; Protocol PRN Reason: Per Protocol Last Admin: 10/25/17 21:39 Dose: 1,000 units/hr, 10 mls/hr Lactulose (Lactulose Liq) 30 ml PO DAILY PRN PRN Reason: SEVERE CONSITIPATION Nitroglycerin (Nitro-Bid 2% Oint) 1 inch TOPICAL Q8HR [place] Sennosides (Senokot) 17.2 mg PO Q12H PRN PRN Reason: Moderate Constipation Allergies Allergy/AdvReac Type Severity Reaction Status Date / Time enalaprilat Allergy Severe Swelling Verified 10/25/17 19:08 Fish Containing Products Allergy Severe Swelling Verified 10/25/17 19:08 benazepril Allergy Unknown SWELLING Verified 10/25/17 19:08 captopril Allergy Unknown SWELLING Verified 10/25/17 19:08 fosinopril Allergy Unknown SWELLING Verified 10/25/17 19:08 lisinopril Allergy Unknown SWELLING Verified 10/25/17 19:08 quinapril Allergy Unknown SWELLING Verified 10/25/17 19:08 Home Medications Medication Instructions Recorded Confirmed Type amlodipine 10 mg PO DAILY 10/25/17 10/25/17 History Exam Vital signs: Vital Signs 10/25/17 15:59 10/25/17 16:09 10/25/17 18:04 Temperature 98 F Pulse Rate 54 L 58 L Respiratory Rate 20 16 Blood Pressure 179/97 H 171/102 H Pulse Oximetry 99 100 100 Intake & Output 10/25/17 10/25/17 10/26/17 06:59 18:59 06:59 Weight 122.47 kg Narrative: GENERAL: This is a well-nourished, well-developed patient, in no apparent distress. SKIN: Warm, dry, intact, no ecchymosis or open lesions EYES: Pupils equal round and reactive, no scleral edema or drainage CARDIOVASCULAR: Bradycardic rate and rhythm without murmurs, gallops, or rubs. RESPIRATORY: Clear to auscultation. Breath sounds equal bilaterally. No wheezes , rales, or rhonchi. GASTROINTESTINAL: Abdomen soft, non-tender, nondistended. Normal active bowel sounds MUSCULOSKELETAL: Extremities without clubbing, cyanosis, or edema. NEURO: Alert & Oriented x4 to person, place, time, situation. Moves all ext x4 Results - Labs CBC & Chem 7: 10/25/17 19:57 10/25/17 16:40 Labs: Short CBC 10/25/17 10/25/17 Range/Units 16:40 19:57 WBC 7.1 7.0 (4.0-11.0) th/mm3 Hgb 11.1 L 10.4 L (11.6-15.3) gm/dL Hct 35.0 32.0 L (35.0-46.0) % Plt Count 224 207 (150-450) th/mm3 BMP 10/25/17 16:40 Sodium 144 Potassium 3.5 Chloride 108 H Carbon Dioxide 28.3 BUN 10 Creatinine 1.03 H Calcium 8.5 Cardiac Enzymes 10/25/17 10/25/17 Range/Units 16:40 19:05 Total Creatine Kinase 75 105 (26-192) U/L CK-MB (CK-2) Less than 1.0 (0.5-3.6) ng/mL Troponin I Less than 0.02 L Less than 0.02 L (0.02-0.05) ng/mL Liver Function 10/25/17 Range/Units 16:40 Total Bilirubin 0.5 (0.2-1.0) mg/dL AST 16 (15-37) U/L ALT 29 (10-53) U/L Alkaline Phosphatase 102 (45-117) U/L Albumin 3.7 (3.4-5.0) g/dL - Imaging Impressions Chest X-Ray 10/25/17 16:33 CONCLUSION: No acute disease Chest CTA 10/25/17 18:09 CONCLUSION: No pulmonary embolus. Caprini VTE Risk Assessment Caprini VTE Risk Assessment: Moderate/High Risk (score >= 2) Caprini Risk Assessment Model: Point Value = 1 Point Value = 2 Point Value = 3 Point Value = 5 Age 41-60 Minor surgery BMI > 25 kg/m2 Swollen legs Varicose veins or History of unexplained or recurrent spontaneous Oral contraceptives or hormone replacement Sepsis (< 1 month) Serious lung disease, including pneumonia (< 1 month) Abnormal pulmonary function Acute myocardial infarction Congestive heart failure (< 1 month) History of inflammatory bowel disease Medical patient at bed rest Age 61-74 Arthroscopic surgery Major open surgery (> 45 min) Laparoscopic surgery (> 45 min) Malignancy Confined to bed (> 72 hours) Immobilizing plaster cast Central venous access Age >= 75 History of VTE Family history of VTE Factor V Leiden Prothrombin [id number] Lupus anticoagulant Anticardiolipin antibodies Elevated serum homocysteine Heparin-induced thrombocytopenia Other congenital or acquired thrombophilia Stroke (< 1 month) Elective arthroplasty Hip, pelvis, or leg fracture Acute spinal cord injury (< 1 month) Prophylaxis Regimen: Total Risk Factor Score Risk Level Prophylaxis Regimen 0-1 Low Early ambulation 2 Moderate Order ONE of the following: *Sequential Compression Device (SCD) *Heparin 5000 units SQ BID 3-4 Higher Order ONE of the following medications: *Heparin 5000 units SQ TID *Enoxaparin/Lovenox 40 mg SQ daily (WT < 150 kg, CrCl > 30 mL/min) *Enoxaparin/Lovenox 30 mg SQ daily (WT < 150 kg, CrCl > 10-29 mL/min) *Enoxaparin/Lovenox 30 mg SQ BID (WT < 150 kg, CrCl > 30 mL/min) AND/OR *Sequential Compression Device (SCD) 5 or more Highest Order ONE of the following medications: *Heparin 5000 units SQ TID (Preferred with Epidurals) *Enoxaparin/Lovenox 40 mg SQ daily (WT < 150 kg, CrCl > 30 mL/min) *Enoxaparin/Lovenox 30 mg SQ daily (WT < 150 kg, CrCl > 10-29 mL/min) *Enoxaparin/Lovenox 30 mg SQ BID (WT < 150 kg, CrCl > 30 mL/min) AND *Sequential Compression Device (SCD) Assessment and Plan - Plan 62 y/o female with a history of HLD, and HTN presented to the ED with complaints of chest pain. Unstable angina r/o ACS Troponin .02-->.02 EKG shows bradycardia CTA negative for PE -Trend troponin, serial EKGs -Nitropaste -Heparin drip -Consult cardiology for evaluation for cardiac cath -NPO after midnight Hypertension, chronic, currently elevated, patient in non compliant -Resume home medications norvasc -Add Coreg 3.125 BID -Monitor vitals HLD, chronic, unknown if patient takes medication -Check lipid profile DVT prophylaxis: Heparin Discussed Condition With: patient and rn
[2017-10-26 01:11] LABS: Activated Partial Thrombo Time 72.8 sec (24.3-30.1); INR 1.1 Ratio; Prothrombin Time 11.1 sec (9.8-11.6)
[2017-10-26 01:28] LABS: Creatine Kinase 62 U/L (26-192)
[2017-10-26] MEDS: Acetaminophen 325 MG Tablet PO PRN ×2 (04:16→20:29)
[2017-10-26 05:49] LABS: Baso % (Auto) 0.4 % (0.0-2.0); Eos # (Auto) 0.1 th/mm3 (0.0-0.4); Hemoglobin 9.9 gm/dL (11.6-15.3); Lymph # (Auto) 2.4 th/mm3 (1.0-4.8); Lymph % (Auto) 41.7 % (9.0-44.0); Mean Corpuscular HGB Conc 33.1 % (32.0-36.0); Mean Corpuscular Hemoglobin 26.4 pg (27.0-34.0); Mean Corpuscular Volume 79.7 fL (80.0-100.0); Mean Platelet Volume 8.3 fL (7.0-11.0); Mono # (Auto) 0.4 th/mm3 (0.0-0.9); Mono % (Auto) 7.3 % (0.0-8.0); Neut # (Auto) 2.8 th/mm3 (1.8-7.7); Neut % (Auto) 48.6 % (16.0-70.0); Platelet Count 180 th/mm3 (150-450); Red Blood Count 3.77 mil/mm3 (4.00-5.30); Red Cell Distribution Width 16.9 % (11.6-17.2); White Blood Count 5.7 th/mm3 (4.0-11.0)
[2017-10-26 06:24] LABS: Alanine Aminotransferase 23 U/L (10-53); Albumin 3.1 g/dL (3.4-5.0); Alkaline Phosphatase 88 U/L (45-117); Anion Gap 7 meq/L (5-15); Aspartate Aminotransferase 12 U/L (15-37); Blood Urea Nitrogen 9 mg/dL (7-18); Calcium 7.9 mg/dL (8.5-10.1); Carbon Dioxide 28.1 meq/L (21.0-32.0); Chloride 108 meq/L (98-107); Chol/HDL Ratio 2.05 Ratio; Cholesterol 90 mg/dL (120-200); Glomerular Filtration Rate 74 mL/min (>89); Glucose,Random 81 mg/dL (74-106); HDL Cholesterol 43.7 mg/dL (40.0-60.0); LDL Cholesterol,Calculated 35 mg/dL (0-99); Potassium 3.7 meq/L (3.5-5.1); Sodium 143 meq/L (136-145); Total Protein 6.5 g/dL (6.4-8.2); Triglycerides 55 mg/dL (42-150)
[2017-10-26] MEDS: amLODIPine 10 MG Tablet PO SCH (08:29)
--- NOTE | 2017-10-26 10:55 | ECG ---
Date Performed: 10/25/2017 Time Performed: 16:10:57 PTAGE: 62 years EKG: SINUS BRADYCARDIA POSSIBLE LEFT ATRIAL ENLARGEMENT BORDERLINE ECG Since the PREVIOUS TRACING , no significant change noted PREVIOUS TRACIN09/09/2016 12.53 DOCTOR: Venu Almeida Interpretating Date/Time 10/26/2017 10:50:41
--- NOTE | 2017-10-26 10:55 | ECG ---
Date Performed: 10/26/2017 Time Performed: 03:15:58 PTAGE: 62 years EKG: Sinus bradycardia Normal ECG except for rate Since the PREVIOUS TRACING , no significant change noted PREVIOUS TRACIN10/26/2017 00.10 DOCTOR: Venu Almeida Interpretating Date/Time 10/26/2017 10:50:27
--- NOTE | 2017-10-26 11:05 | P.PN ---
Subjective Interval history: Follow-up atypical chest pain October 26, 2017-patient seen and examined, denies any chest pain, shortness of breath, dizziness, currently n.p.o. Physical Exam Vital signs: Vital Signs 10/25/17 15:59 10/25/17 16:09 10/25/17 18:04 Temperature 98 F Pulse Rate 54 L 58 L Respiratory Rate 20 16 Blood Pressure 179/97 H 171/102 H Pulse Oximetry 99 100 100 10/25/17 20:00 10/25/17 23:09 10/25/17 23:11 Temperature 98.1 F Pulse Rate 47 L 50 L Respiratory Rate 18 Blood Pressure 142/98 H Pulse Oximetry 98 95 10/26/17 00:11 10/26/17 01:00 10/26/17 02:00 Temperature Pulse Rate 55 L 51 L 53 L Respiratory Rate Blood Pressure Pulse Oximetry 10/26/17 03:00 10/26/17 04:00 10/26/17 05:00 Temperature 97.4 F L Pulse Rate 51 L 53 L 58 L Respiratory Rate 18 Blood Pressure 115/79 Pulse Oximetry 100 10/26/17 06:00 10/26/17 07:00 10/26/17 08:00 Temperature 97.6 F Pulse Rate 52 L 54 L 52 L Respiratory Rate 18 Blood Pressure 146/84 H Pulse Oximetry 100 100 10/26/17 09:00 10/26/17 10:00 Temperature Pulse Rate 47 L 53 L Respiratory Rate Blood Pressure Pulse Oximetry Intake & Output 10/25/17 10/26/17 10/26/17 18:59 06:59 18:59 Output Total 700 / 700 Balance -700 / -700 Weight 122.47 kg 121.7 kg Output: Urine 700 / 700 Other: Date of Last Bowel Movement 10/25/17 10/25/17 Narrative: GENERAL: nad SKIN: Warm and dry. HEAD: Normocephalic. EYES: No scleral icterus. No injection or drainage. NECK: Supple, trachea midline. No JVD or lymphadenopathy. CARDIOVASCULAR: Regular rate and rhythm without murmurs, gallops, or rubs. RESPIRATORY: Breath sounds equal bilaterally. No accessory muscle use. GASTROINTESTINAL: Abdomen soft, non-tender, nondistended. MUSCULOSKELETAL: No cyanosis, or edema. BACK: Nontender without obvious deformity. No CVA tenderness. Results - Labs CBC & Chem 7: 10/26/17 05:40 10/26/17 05:40 Laboratory Results - last 24 hr 10/25/17 10/25/17 10/25/17 16:40 16:40 16:40 WBC 7.1 RBC 4.26 Hgb 11.1 L Hct 35.0 MCV 82.1 MCH 26.1 L MCHC 31.8 L RDW 16.8 Plt Count 224 MPV 9.4 Neut % (Auto) 54.5 Lymph % (Auto) 37.5 Major % (Auto) 6.1 Eos % (Auto) 1.4 Baso % (Auto) 0.5 Neut # (Auto) 3.9 Lymph # (Auto) 2.7 Major # (Auto) 0.4 Eos # (Auto) 0.1 Baso # (Auto) 0.0 WBC Differential . Differential Comment Auto diff final PT 10.4 INR 1.0 APTT 26.4 D-Dimer Quant (PE/DVT) 1.04 H Sodium 144 Potassium 3.5 Chloride 108 H Carbon Dioxide 28.3 Anion Gap 8 BUN 10 Creatinine 1.03 H Estimated GFR 66 L Random Glucose 75 Calcium 8.5 Total Bilirubin 0.5 AST 16 ALT 29 Alkaline Phosphatase 102 Total Creatine Kinase 75 CK-MB (CK-2) Troponin I Less than 0.02 L Total Protein 7.7 Albumin 3.7 Triglycerides Cholesterol LDL Cholesterol, Calc HDL Cholesterol Cholesterol/HDL Ratio Lipase 83 10/25/17 10/25/17 10/26/17 19:05 19:57 00:52 WBC 7.0 RBC 3.98 L Hgb 10.4 L Hct 32.0 L MCV 80.6 MCH 26.2 L MCHC 32.5 RDW 17.3 H Plt Count 207 MPV 9.1 Neut % (Auto) Lymph % (Auto) Major % (Auto) Eos % (Auto) Baso % (Auto) Neut # (Auto) Lymph # (Auto) Major # (Auto) Eos # (Auto) Baso # (Auto) WBC Differential Differential Comment PT INR APTT D-Dimer Quant (PE/DVT) Sodium Potassium Chloride Carbon Dioxide Anion Gap BUN Creatinine Estimated GFR Random Glucose Calcium Total Bilirubin AST ALT Alkaline Phosphatase Total Creatine Kinase 105 62 CK-MB (CK-2) Less than 1.0 Troponin I Less than 0.02 L Less than 0.02 L Total Protein Albumin Triglycerides Cholesterol LDL Cholesterol, Calc HDL Cholesterol Cholesterol/HDL Ratio Lipase 10/26/17 10/26/17 10/26/17 00:52 05:40 05:40 WBC 5.7 RBC 3.77 L Hgb 9.9 L Hct 30.0 L MCV 79.7 L MCH 26.4 L MCHC 33.1 RDW 16.9 Plt Count 180 MPV 8.3 Neut % (Auto) 48.6 Lymph % (Auto) 41.7 Major % (Auto) 7.3 Eos % (Auto) 2.0 Baso % (Auto) 0.4 Neut # (Auto) 2.8 Lymph # (Auto) 2.4 Major # (Auto) 0.4 Eos # (Auto) 0.1 Baso # (Auto) 0.0 WBC Differential . Differential Comment Auto diff final PT 11.1 INR 1.1 APTT 72.8 H D D-Dimer Quant (PE/DVT) Sodium 143 Potassium 3.7 Chloride 108 H Carbon Dioxide 28.1 Anion Gap 7 BUN 9 Creatinine 0.93 Estimated GFR 74 L Random Glucose 81 Calcium 7.9 L Total Bilirubin 0.5 AST 12 L ALT 23 Alkaline Phosphatase 88 Total Creatine Kinase CK-MB (CK-2) Troponin I Total Protein 6.5 D Albumin 3.1 L D Triglycerides 55 Cholesterol 90 L LDL Cholesterol, Calc 35 HDL Cholesterol 43.7 Cholesterol/HDL Ratio 2.05 Lipase 10/26/17 05:40 WBC RBC Hgb Hct MCV MCH MCHC RDW Plt Count MPV Neut % (Auto) Lymph % (Auto) Major % (Auto) Eos % (Auto) Baso % (Auto) Neut # (Auto) Lymph # (Auto) Major # (Auto) Eos # (Auto) Baso # (Auto) WBC Differential Differential Comment PT INR APTT 63.9 H D-Dimer Quant (PE/DVT) Sodium Potassium Chloride Carbon Dioxide Anion Gap BUN Creatinine Estimated GFR Random Glucose Calcium Total Bilirubin AST ALT Alkaline Phosphatase Total Creatine Kinase CK-MB (CK-2) Troponin I Total Protein Albumin Triglycerides Cholesterol LDL Cholesterol, Calc HDL Cholesterol Cholesterol/HDL Ratio Lipase - Imaging Impressions Chest X-Ray 10/25/17 16:33 CONCLUSION: No acute disease Chest CTA 10/25/17 18:09 CONCLUSION: No pulmonary embolus. Assessment and Plan - Plan 62 y/o female with a history of HLD, and HTN presented to the ED with complaints of chest pain. Unstable angina r/o ACS CTA negative for PE -Trend troponin, serial EKGs -Nitropaste -Heparin drip -Consult cardiology for evaluation for cardiac cath -check 2D echo, lipid profile Hypertension, chronic, currently elevated, patient in non compliant -continue Norvasc, Coreg 3.125 BID -Monitor vitals HLD, chronic -Check lipid profile DVT prophylaxis: Heparin
--- NOTE | 2017-10-26 11:47 | ECG ---
Date Performed: 10/26/2017 Time Performed: 00:10:48 PTAGE: 62 years EKG: Sinus bradycardia Normal ECG except for rate PREVIOUS TRACING : 10/25/2017 16.10 Compared to previous tracing, left atrial abnormalit y no longer prominent DOCTOR: Venu Almeida Interpretating Date/Time 10/26/2017 11:47:03
--- NOTE | 2017-10-26 14:19 | ECHRPT ---
Indication: chest pain CONCLUSIONS The left ventricular systolic function is normal with an estimated ejection fraction in the range of 60-65%. Normal left ventricular size. Wall thickness is normal. No regional wall motion abnormalities are present. Trace mitral valve regurgitation. There is trace tricuspid valve regurgitation. The estimated pulmonary arterial pressure is 25.2 mmHg. Trivial pulmonary valve regurgitation. BP: / HR: Rhythm: Sinus MEASUREMENTS (Male / Female) Normal Values Technical Quality:Good 2D ECHO LV Diastolic Diameter PLAX 4.8 cm 4.2 - 5.9 / 3.9 - 5.3 cm LV Systolic Diameter PLAX 3.3 cm IVS Diastolic Thickness 1.1 cm 0.6 - 1.0 / 0.6 - 0.9 cm LVPW Diastolic Thickness 1.1 cm 0.6 - 1.0 / 0.6 - 0.9 cm LV Relative Wall Thickness 0.4 RV Internal Dim ED PLAX 2.6 cm LVOT Diameter 1.9 cm LA Systolic Diameter LX 3.4 cm 3.0 - 4.0 / 2.7 - 3.8 cm LV Ejection Fraction MOD 4C 66.4 % LV Ejection Fraction 4C AL 67.6 % M-MODE Aortic Root Diameter MM 2.0 cm LA Systolic Diameter MM 3.2 cm LA Ao Ratio MM 1.6 AV Cusp Separation MM 1.7 cm DOPPLER AV Peak Velocity 162.0 cm/s AV Peak Gradient 10.5 mmHg LVOT Peak Velocity 105.0 cm/s LVOT Peak Gradient 4.4 mmHg AV Area Cont Eq pk 1.8 cm MV Area PHT 4.2 cm Mitral E Point Velocity 87.9 cm/s Mitral A Point Velocity 59.7 cm/s Mitral E to A Ratio 1.5 LV E' Lateral Velocity 12.1 cm/s Mitral E to LV E' Lateral Ratio 7.3 LV E' Septal Velocity 6.9 cm/s Mitral E to LV E' Septal Ratio 12.7 TR Peak Velocity 195.0 cm/s TR Peak Gradient 15.2 mmHg Right Atrial Pressure 10.0 mmHg Pulmonary Artery Systolic Pressu 25.2 mmHg Right Ventricular Systolic Press 25.2 mmHg PV Peak Velocity 138.0 cm/s PV Peak Gradient 7.6 mmHg FINDINGS LEFT VENTRICLE The left ventricular systolic function is normal with an estimated ejection fraction in the range of 60-65%. Normal left ventricular size. Wall thickness is normal. No regional wall motion abnormalities are present. RIGHT VENTRICLE Normal right ventricular size and systolic function. LEFT ATRIUM The left atrial size is normal. RIGHT ATRIUM The right atrial size is normal. ATRIAL SEPTUM Normal atrial septal thickness without atrial level shunting by limited color doppler interrogation. AORTA The aortic root and proximal ascending aorta are normal in size on limited imaging. MITRAL VALVE Structurally normal mitral valve. Trace mitral valve regurgitation. AORTIC VALVE Trileaflet aortic valve. No aortic valve stenosis or regurgitation. TRICUSPID VALVE Structurally normal tricuspid valve. There is trace tricuspid valve regurgitation. The estimated pulmonary arterial pressure is 25.2 mmHg. PULMONARY VALVE Trivial pulmonary valve regurgitation. VESSELS The inferior vena cava is normal in size. PERICARDIUM No pericardial effusion. Luis Rodriguez MD, FACC (Electronically Signed) Final Date:26 October 2017 14:19
[2017-10-26] MEDS ORDERED: HEPARIN ONE (14:36)
[2017-10-26] MEDS ORDERED: SODIUM CHLORIDE ONE (14:36)
[2017-10-26] MEDS ORDERED: fentaNYL Citrate Inj 100 MCG/2 ML Ampul ONE (14:37)
[2017-10-26] MEDS ORDERED: Heparin 10,000 UNITS/10 ML Vial (for IV use) ONE (14:37)
--- NOTE | 2017-10-26 15:24 | CATHPROC ---
nGAP HIS Report Study Information Study Number Scheduled Start Study Start [id number] 10/26/2017 Oct 26 2017 2:31PM Referring Institution Admit Source Facility Department 1 Other [facility] - [employer] Sergeant Physician and Clinical Staff Initial Jaison Schwartz Low Raw Sugar Cutter Michel RN, Leeroy Recorder Zeinab Tom,ADMITTED ATTORNEYS TECH2 Scrub Ian Uriostegui,RT(R) Procedures Performed Procedure Location (Site) Vessel Name Coronary Angiograms LCA Left Coronary Coronary Angiograms RCA Right Coronary L Heart Cath Equipment Time Passenger Service Representative Description Size Mfg Part Number Used/Scraped TRANSDUCER, TRUWAVE [id number] 14:37 CRUZ BERNABE * Used W/STOCKCOCK *[id number] 14:37 BAC ON TRAC SUPPORT, ARTERIAL ADULT [id number] Used SDN-21-2.5 14:37 Am[employer]. INC. NEEDLE, PERCUTANEOUS ENTRY 21G X 2.5CM Used *[id number] *[id number] [id number] *[id number] 14:37 [employer] BLANKET,WARM AIR CCL * Used *[id number] 14:37 [employer] PACK, CCL CUSTOM * Used *[id number] BAND, RADIAL COMPRESSION TR [id number] 15:11 [employer] MEDICAL 24CM Used SHORT 24 *[id number] BAND, RADIAL COMPRESSION TR [id number] 15:11 [employer] 24CM Used SHORT 24 *[id number] 14:37 [employer] WIRE, EXCHANGE 260CM 3MMJ 260CM Used *[id number] 14:37 NAM[employer] MANIFOLD, 4 PORT * Used *[id number] 14:37 [employer] OMNIPAQUE, 350 MG, 150ML 150ML [id number] Used SHEATH, FR6 TRANSRADIAL [id number] 14:37 [employer] MEDICAL FR 6 Used SLENDER 10CM *[id number] History: Current Medications Medication Dosage/Unit Route Frequency Last Date/Time Taken ASA CARVEDILOL NORVASC History: Allergies Allergy Reaction Enalapril Swelling Seafood Swelling SILVANO Inhibitors SWELLING Fish Containing Products Swelling captopril SWELLING lisinopril SWELLING benazepril SWELLING quinapril SWELLING fosinopril SWELLING enalaprilat Swelling History: Risk Factors Family History of Hypertension Dyslipidemia Previous NC Previous Heart Failure Premature CAD Yes Yes No No No Prior Valve Prior PCI Prior CABG Surgery No No No Cerebrovascular Peripheral Artery Chronic Lung On Dialysis Diabetes Disease Disease Disease No No No No No History: Stress Tests Stress or Imaging Studies Performed No History: Other Disease Selection Items HTN History: Other Current Smoker Method Quit Packs a Day No Cigarettes 30 Years Ago 1 Labs Hgb (g/dl) Hct (%) WBC (l/cumm) Platelets (thousands) 11.60-17.00 35.00-51.00 4.00-11.00 150.00-450.00 9.9 30 5.7 120 Glucose (mg/dl) BUN (mg/dl) Creatinine (mg/dl) BUN:Creatinine (1:x) 74.00-106.00 7.00-18.00 0.50-1.30 10.00-20.00 81 9 0.9 10 Na (meq/l) K (meq/l) 136.00-145.00 3.50-5.10 143 3.7 Medication Medication Total Dose (Bolus/Oral) Medication Total Dosage/Unit 1% XYLOCAINE 20 mL FENTANYL 50 mcg HEPARIN 5000 units NTG (IC) 100 mcg RADIAL COCKTAIL 5 mL (Bolus) VERSED 2 mg Medications (Bolus/Oral) Medication Time Given Dosage/Unit Administered By Reason VERSED 10/26/2017 2:52:42 PM 2 mg Leeroy Pearson RN 2 mg VERSED given in lab by Leeroy Pearson RN in Left Antecubital via Peripheral IV. Ordered by Jaison Rowland. FENTANYL 10/26/2017 2:53:21 PM 50 mcg Leeroy Pearson RN 50 mcg FENTANYL given in lab by Leeroy Pearson RN in Left Antecubital via Peripheral IV. Ordered by Jaison Felton. 1% XYLOCAINE 10/26/2017 2:54:02 PM 20 mL aJison Rowland 20 mL 1% XYLOCAINE given in lab by Jaison Rowland in Right Radial via Subcutaneous. Ordered by Jason Rowland. Ntg 200mcg Verapamil 2.5mg Heparin RADIAL COCKTAIL 10/26/2017 2:55:14 PM 5 mL (Bolus) Jaison Rowland 2000U 5 mL (Bolus) RADIAL COCKTAIL given in lab by Jaison Rowland via Radial. Using [Solution Name]. Ordered by Jaison Rowland. Reason: Ntg 200mcg Verapamil 2.0mg . HEPARIN 10/26/2017 2:58:05 PM 5000 units Leeroy Pearson RN 5000 units HEPARIN given in lab by Leeroy Pearson RN in Left Antecubital via Peripheral IV. Ordered by Jaison Rowland. NTG (IC) 10/26/2017 3:00:29 PM 100 mcg Jaison Rowland 100 mcg NTG (IC) given in lab by Jaison Rowland in Right Radial via Intra-coronary. Ordered by Jason Rowland. Medication (Drip) Medication Time Given Dosage/Unit Concentration/Unit Diluent (ml) Solutio n IV Solutions 10/26/2017 2:31:57 PM 0 mL (IV) 500 NaCl .9 IV Solutions given in lab by Leeroy Pearson RN in Left Antecubital via Peripheral IV. Pump/Drip Flow = 20 ml/hr using NaCl .9. Ordered by Jaison Rowland. Initial Case Assessment Cardiovascular HR NIBP 53 160/111 Edema Present Skin color Skin None Normal Warm Dry Circulatory - Right Pulses Dorsalis Pedis Femoral Radial 1 3 2 Scale (0,1,2,3,4,d) Scale (0,1,2,3,4,d) Neurological State Oriented to time-place- Alert Moves all extremities person Respiration - General Respiration Rate SpO2 (%) (B/min) 12 98 Final Case Assessment Cardiovascular HR NIBP 58 161/95 Edema Present Skin color Skin None Normal Warm Dry Circulatory - Right Pulses Dorsalis Pedis Femoral Radial 1 3 2 Scale (0,1,2,3,4,d) Scale (0,1,2,3,4,d) Neurological State Oriented to time-place- Alert Moves all extremities person Respiration - General Respiration Rate SpO2 (%) (B/min) 12 99 Chronological Log Time Study Chronological Log 14:31:31 Patient arrived via Bed. 14:31:31 Patient Name, D.O.B, / Armband Verified By R.N. 14:31:32 Consent signed by the physician and the patient and verified by the [employer] Police Sergeant staff. 14:31:34 Pre-op and post- op instructions given; patient acknowledges understanding of instructions. 14:31:43 Allens test performed on the right radial and ulnar artery. 14:31:46 Patient has been NPO for More than 6Hrs. Vitals capture started with the following parameters, Patient=Adult, Interval=3 min, Initial Pr iszgek=833 mmHg, 14:31:48 Deflation Rate=5 mmHg, Cuff placed on Left Arm 14:31:50 NO Skin Breakdown- 14:31:52 Patient Warmer Placed on the Table. 14:31:53 Khoi Prominences Protected 14:31:56 A # 20 IV was noted in the Antecubital (left). Grade = 0 IV Solutions given in lab by Leeroy Pearson RN in Left Antecubital via Peripheral IV. Pump/Drip F low = 20 ml/hr using NaCl 14:31:57 .9. Ordered by Jaison Rowland. 14:31:58 History and physical on the chart or being dictated. 14:32:20 HR=53 bpm, UAOS=465/104 mmhg, SpO2=98.0 %, Resp=12 B/min, Pain=0, Oz=10, Da Silva=2 14:35:22 HR=56 bpm, QAHK=737/111 mmhg, HsX1=016.0 %, Resp=13 B/min, Pain=0, Oz=10, Da Silva=2 14:35:36 Reference ECG taken Assessment: Initial Case, HR=53 BPM, FYEI=244/111 mmhg, Edema=None, Color=Normal, Skin = Warm, Dry Right Pulses: Henok Ped=1, Femoral=3, Radial=2 14:37:16 Neurological: State=Alert, Ox3, [place] Respiration: Resp=12 B/min, SpO2=98 % 14:38:25 HR=53 bpm, LDOC=635/104 mmhg, GiD4=551.0 %, Resp=11 B/min, Pain=0, Oz=10, Da Silva=2 14:38:57 Right Radial and groin(s) prepped with 2% chlorhexidine, and draped after a 3 min. waiting time. 14:41:25 HR=56 bpm, TPOR=328/97 mmhg, XaH3=120.0 %, Resp=12 B/min, Pain=0, Oz=10, Da Silva=2 14:44:25 HR=55 bpm, KBLB=957/96 mmhg, QoF3=346.0 %, Resp=16 B/min, Pain=0, Oz=10, Da Silva=2 14:47:23 HR=57 bpm, QQWH=308/104 mmhg, HgI2=874.0 %, Resp=10 B/min, Pain=0, Oz=10, Da Silva=2 14:47:54 Pressure channel 1 zeroed. 14:50:25 HR=52 bpm, UDMG=557/96 mmhg, YpB3=923.0 %, Resp=9 B/min, Pain=0, Oz=10, Da Silva=2 Time Out. Correct patient, correct procedure, correct physician, labs, allergies, and equipment verified with senior cytogenetics laboratory director 14:52:00 team present. Fire risk assesment completed (see hard stop sheet for coding). Time Out Conc urred by MD and individual staff in procedure. 14:52:31 Case Start 14:52:42 2 mg VERSED given in lab by Leeroy Pearson RN in Left Antecubital via Peripheral IV. Ordered by Jaison Rowland. 14:53:21 50 mcg FENTANYL given in lab by Leeroy Pearson RN in Left Antecubital via Peripheral IV. Orde red by Jaison Rowland. 14:54:02 20 mL 1% XYLOCAINE given in lab by Jaison Rowland in Right Radial via Subcutaneous. Ordered b y Jaison Rowland. 14:54:03 HR=61 bpm, TVZN=120/93 mmhg, HxN1=937.0 %, Resp=9 B/min, Pain=0, Oz=10, Da Silva=2 14:54:43 Access site was Right Radial Artery . A SHEATH, FR6 TRANSRADIAL SLENDER 10CM FR 6 was advanced into the Radial (right) using the Olga fied Seldinger 14:54:50 technique. 5 mL (Bolus) RADIAL COCKTAIL given in lab by Jaison Rowland via Radial. Using [Solution Name]. Or dered by Jaison Rowland. 14:55:14 Reason: Ntg 200mcg Verapamil 2.0mg . 14:56:22 HR=58 bpm, GNNE=882/88 mmhg, SpO2=97.0 %, Resp=12 B/min, Pain=0, Oz=10, Da Silva=2 A JR 4.0 INFINITI CATHETER FR 6 was advanced over a wire. OMNIPAQUE, 350 MG, 150ML 150ML was us ed for 14:56:36 injections. 14:58:05 5000 units HEPARIN given in lab by Leeroy Pearson RN in Left Antecubital via Peripheral IV. O rdered by Jaison Rowland. 14:59:18 HR=56 bpm, PCCP=067/90 mmhg, SpO2=98 %, Resp=8 B/min, Pain=0, Oz=10, Da Silva=2 Recorded Pressure: Ao, HR=57, Condition=Condition 1 14:59:48 (Aorta) Ao 126/77/96 15:00:03 The RCA was injected and visualized at various angles. OMNIPAQUE, 350 MG, 150ML 150ML used . 15:00:29 100 mcg NTG (IC) given in lab by Jaison Rowland in Right Radial via Intra-coronary. Ordered b y Jaison Rowland. Recorded Pressure: LV, HR=67, Condition=Condition 1 15:01:08 (Left Ventricle) LV 114/2/7 Recorded Pressure: LV, Ao, HR=71, Condition=Condition 1 15:01:28 (Left Ventricle) LV 116/3/6, (Aorta) Ao 123/82/101 15:02:20 HR=65 bpm, AHLP=857/85 mmhg, SpO2=95.0 %, Resp=14 B/min, Pain=0, Oz=10, Da Silva=2 After removing the current catheter a JL 3.5 INFINITI CATHETER FR 6 was advanced over a WIRE, E XCHANGE 260CM 15:05:09 3MMJ 260CM. 15:05:21 HR=54 bpm, SXWY=980/92 mmhg, SpO2=98 %, Resp=12 B/min, Pain=0, Oz=10, Da Silva=2 15:06:16 The LCA was injected and visualized at various angles. OMNIPAQUE, 350 MG, 150ML 150ML used . 15:09:04 HR=70 bpm, ZJBF=641/97 mmhg, SpO2=98.0 %, Resp=15 B/min, Pain=0, Oz=10, Da Silva=2 15:09:59 Catheter was removed 15:10:29 Case End (Physician broke scrub) 15:10:37 Catheter(s) removed without difficulty Radial Compression Device Used. 15 mLs of air placed in BAND, RADIAL COMPRESSION TR SHORT 24 24 CM. Affected 15:10:40 hand 97 % O2 saturation. 15:11:23 HR=52 bpm, NKWZ=558/95 mmhg, SpO2=99.0 %, Resp=9 B/min, Pain=0, Oz=10, Da Silva=2 15:14:27 HR=64 bpm, KDLL=764/90 mmhg, BuY5=258.0 %, Resp=12 B/min, Pain=0, Oz=10, Da Silva=2 15:17:30 HR=57 bpm, NQGV=559/97 mmhg, KxB2=148.0 %, Resp=10 B/min, Pain=0, Oz=10, Da Silva=2 15:21:15 HR=58 bpm, GYWH=292/95 mmhg, SpO2=99.0 %, Resp=12 B/min, Pain=0, Oz=10, Da Silva=2 15:21:36 Vitals capture stopped. Assessment: Final Case, HR=58 BPM, QVUN=809/95 mmhg, Edema=None, Color=Normal, Skin = Warm, Dry Right Pulses: Henok Ped=1, Femoral=3, Radial=2 15:21:45 Neurological: State=Alert, Ox3, [place] Respiration: Resp=12 B/min, SpO2=99 % 15:22:26 No case complications noted. 15:22:28 Cine recording checked. 15:22:30 Bedside Report will be given. 15:22:34 A Left Heart Cath was performed. 15:22:36 [facility] 15[facility]22:38 Clinical correlaton risk stratification. End Study - Contrast Media Used In Study Contrast Total Opened (mL) Total Used (mL) Total Wasted (mL) Omnipaque 70 70 0 End Study - Maximum Contrast Load Max Contrast Load (mL) 676.8 End Study - Radiation Exposure Fluoro Time (minutes) 5.0 End Study - Patient Disposition Complications Transferred To Telemetry Bed
[2017-10-26] MEDS: Sodium Chlor 0.9% Inj 500 ML IV.CONT SCH ×3 (16:00→23:49)
[2017-10-26] MEDS ORDERED: hydrALAZINE 25 MG Tablet PO PRN (20:03)
[2017-10-26] MEDS ORDERED: Iohexol 350 MG/ML 100 ML Vial (for Cath Lab) IVCONTRAST ONE (21:25)
[2017-10-27] MEDS: Acetaminophen 325 MG Tablet PO PRN ×3 (00:37→08:28)
[2017-10-27] MEDS: Sodium Chlor 0.9% Inj 500 ML IV.CONT SCH ×3 (02:18→06:23)
[2017-10-27 03:21] VITALS: O2SAT 100
--- NOTE | 2017-10-27 05:37 | P.PCNCA ---
- Cardiology Procedure Note Procedure Date: 10/26/17 Procedure Detail: Preprocedure Dx: Unstable Angina Postprocedure Dx: Normal Coronary Arteries Procedures Performed: Coronary Angiography via the right radial Indications: In brief, Mrs Vang had chest pain with a positive lexiscan, she denied cath earlier at [facility]. She comes today with chest pain. See consult note for details. Description of the Procedure: After discussion of risks, benefits, and alternatives the patient was brought to the blender laborer in a non sedated state. She was sterilely prepped and draped in a usual fashion.1% lidocaine solution was used for anesthesia and we placed a 6F sheath into the right radial artery. We then used a JR4 to engage the RCA. This was exchanged for a JL 3.5 to engage the left main. Images obtained after contrast dye injection. FINDINGS: Right coronary artery: Upon initial engagement there appeared to be spasm of the proximal vessel. After nitroglycerin and re-engagement, this resolved. There is a JORDEN and PDA and it is codominant.There are minimal luminal irregularities present. Left main: Large caliber vessel which bifurcates into a left anterior descending and a left circumflex. This vessel has minimal luminal irregularities. Left Anterior Descending: Moderate caliber vessel that courses distally to wrap around the apex giving rise to multiple diagonal branches. There are minimal luminal irregularities. Left Circumflex: Moderate caliber vessel that courses distally within the AV grove, giving rise to multiple OM. There are minimal luminal irregularities. Summary: Normal Coronary Arteries Plan: We will d/c her coreg at this time given her bradycardia and have her followup as an outpatient for further titration of her medications.
--- NOTE | 2017-10-27 05:44 | P.CONCA ---
History of Present Illness Consult date: 10/26/17 Primary Care Provider: Tiffany Whitaker Family Provider: Tiffany Whitaker Chief Complaint: chest pain History of Present Illness: 62 year old history of HTN, HLD who presents with complaints of intermittent substernal chest pain and occasional dizziness. She has a hx of HTN but has been relatively noncompliant with her medications. She was recently started on coreg and had sinus bradycardia on telemetry. A recent Lexiscan showed a reversible anterior defect and she declined a cath at that time. Currently she is chest pain free without shortness of breath. She denies PND/Orthopnea/LE/ Syncope/Presyncope. Review of Systems negative unless in the [facility] - History History Provided By: Patient - Medical History Medical History: Medical History (Last Updated 10/25/17 @ 23:23 by CLARY Luna) HLD (hyperlipidemia) Hypertension - Surgical History Surgical History: Surgical History (Last Updated 10/25/17 @ 23:22 by CLARY Luna) Cholecystectomy planned History of ankle surgery Hx of appendectomy - Family History Family History: Family History (Last Updated 10/25/17 @ 23:22 by CLARY Luna) Other Hypertension - Tobacco History Second Hand Smoke Exposure: No Tobacco Use In Past 30 Days: Yes Smoking Status: Former smoker Tobacco Type: Cigarettes, Cigars - Alcohol History How Often Do You Have a Drink Containing Alcohol: Monthly or less - Substance Use History Substance History: Active Abuse - Substance Use Type Marijuana Status: Active Route Used: Inhalation Frequency: occasionally Reason for Use: Calm Down Comment: to increase appetite - Travel History Recent Travel in the [place] Within the Last 8 Weeks: No Recent Travel Out of the Country Within the Last 8 Weeks: No - Immunization History Tetanus Immunization: Unsure Hx Influenza Vaccine This Season: No Medications and Allergies Active Medications: Active Medications Acetaminophen (Tylenol) 650 mg PO Q4H PRN PRN Reason: fever or headache Last Admin: 10/27/17 04:57 Dose: 650 mg Al Hydroxide/Mg Hydroxide (Milk Of Magnbalta Liq) 30 ml PO Q12H PRN PRN Reason: Mild Constipation Amlodipine Besylate (Norvasc) 10 mg PO DAILY [facility] Last Admin: 10/26/17 08:29 Dose: 10 mg Aspirin (Ecotrin) 81 mg PO DAILY [facility] Last Admin: 10/26/17 08:30 Dose: 81 mg Bisacodyl (Dulcolax Supp) 10 mg RECTAL DAILY PRN PRN Reason: SEVERE CONSITIPATION Hydralazine HCl (Apresoline) 25 mg PO Q8H PRN PRN Reason: SBP > 160 AND DBP > 90 Sodium Chloride (Ns Inj) 500 mls @ 150 mls/hr IV.CONT .Q3H20M [facility] Last Admin: 10/27/17 03:13 Dose: 150 mls/hr Lactulose (Lactulose Liq) 30 ml PO DAILY PRN PRN Reason: SEVERE CONSITIPATION Nitroglycerin (Nitro-Bid 2% Oint) 1 inch TOPICAL Q8HR [facility] Last Admin: 10/27/17 05:03 Dose: Not Given Sennosides (Senokot) 17.2 mg PO Q12H PRN PRN Reason: Moderate Constipation Sodium Chloride (Ns Flush) 2 ml IV.FLUSH BID [facility] Last Admin: 10/26/17 20:29 Dose: 2 ml Sodium Chloride (Ns Flush) 2 ml IV.FLUSH UNSCH PRN PRN Reason: FLUSH AFTER USING IV ACCESS Allergies Allergy/AdvReac Type Severity Reaction Status Date / Time enalaprilat Allergy Severe Swelling Verified 10/25/17 19:08 Fish Containing Products Allergy Severe Swelling Verified 10/25/17 19:08 benazepril Allergy Unknown SWELLING Verified 10/25/17 19:08 captopril Allergy Unknown SWELLING Verified 10/25/17 19:08 fosinopril Allergy Unknown SWELLING Verified 10/25/17 19:08 lisinopril Allergy Unknown SWELLING Verified 10/25/17 19:08 quinapril Allergy Unknown SWELLING Verified 10/25/17 19:08 Home Medications Medication Instructions Recorded Confirmed Type amlodipine 10 mg PO DAILY 10/25/17 10/25/17 History Exam Vital signs: Vital Signs 10/26/17 06:00 10/26/17 07:00 10/26/17 08:00 Temperature 97.6 F Pulse Rate 52 L 54 L 52 L Respiratory Rate 18 Blood Pressure 146/84 H Pulse Oximetry 100 100 10/26/17 09:00 10/26/17 10:00 10/26/17 11:00 Temperature 98.3 F Pulse Rate 47 L 53 L 72 Respiratory Rate 18 Blood Pressure 119/78 Pulse Oximetry 99 10/26/17 12:00 10/26/17 13:00 10/26/17 14:00 Temperature Pulse Rate 51 L 84 64 Respiratory Rate Blood Pressure Pulse Oximetry 10/26/17 15:00 10/26/17 16:00 10/26/17 17:00 Temperature 98.0 F Pulse Rate 56 L 51 L 73 Respiratory Rate 18 Blood Pressure 149/92 H Pulse Oximetry 100 10/26/17 18:00 10/26/17 19:00 10/26/17 20:00 Temperature 97.8 F Pulse Rate 75 56 L 54 L Respiratory Rate 18 Blood Pressure 140/86 Pulse Oximetry 96 100 10/26/17 21:00 10/26/17 22:00 10/26/17 23:00 Temperature 98.4 F Pulse Rate 62 64 66 Respiratory Rate 19 Blood Pressure 112/72 Pulse Oximetry 99 10/27/17 00:00 10/27/17 01:00 10/27/17 02:00 Temperature Pulse Rate 69 60 87 Respiratory Rate Blood Pressure Pulse Oximetry 10/27/17 03:00 10/27/17 04:00 10/27/17 05:00 Temperature 97.8 F Pulse Rate 53 L 53 L 67 Respiratory Rate 19 Blood Pressure 113/76 Pulse Oximetry 100 Intake & Output 10/26/17 10/26/17 10/27/17 06:59 18:59 06:59 Intake Total 1180 / 1180 1000 / 1000 Output Total 700 / 700 1350 / 1350 Balance -700 / -700 -170 / -170 1000 / 1000 Weight 121.7 kg Intake: IV 700 / 700 1000 / 1000 Heparin/D5W 25,000 U/250 mL 25, 200 / 200 000 unit In 250 ml @ Per Protocol IV.CONT TITRATE PRN Rx #:[id number] NS Inj 500 ML @ 150 mls/hr IV. 500 / 500 1000 / 1000 CONT .Q3H20M [facility] Rx#:[id number] Oral 480 / 480 Output: Urine 700 / 700 1350 / 1350 Other: Date of Last Bowel Movement 10/25/17 10/25/17 10/25/17 - Constitutional no acute distress - Routine HEENT Exam Head: Present: normocephalic Eye: Present: EOMI ENT: Present: mucous membranes moist - Routine Neck Exam Present: supple - Routine Chest/Breast/Axilla Exam Chest wall: Absent: tenderness - Routine Respiratory Exam Present: CTA bilaterally - Routine Cardiovascular Exam Present: RRR, S1, S2 - Routine Abdominal Exam Present: soft, normoactive bowel sounds - Routine Skin Exam Present: intact - Routine Neurological Exam Present: alert, oriented X3 - Routine Psychiatric Exam Present: normal affect Results 10/26/17 05:40 10/26/17 05:40 Cardiac Enzymes 10/26/17 Range/Units 05:40 AST 12 L (15-37) U/L Coagulation 10/26/17 10/26/17 Range/Units 05:40 12:07 APTT 63.9 H 58.3 H (24.3-30.1) sec Lipids 10/26/17 Range/Units 05:40 Triglycerides 55 (42-150) mg/dL Cholesterol 90 L (120-200) mg/dL HDL Cholesterol 43.7 (40.0-60.0) mg/dL Cholesterol/HDL Ratio 2.05 Ratio CBC 10/26/17 Range/Units 05:40 WBC 5.7 (4.0-11.0) th/mm3 RBC 3.77 L (4.00-5.30) mil/mm3 Hgb 9.9 L (11.6-15.3) gm/dL Hct 30.0 L (35.0-46.0) % Plt Count 180 (150-450) th/mm3 Neut # (Auto) 2.8 (1.8-7.7) th/mm3 Lymph # (Auto) 2.4 (1.0-4.8) th/mm3 [place] # (Auto) 0.4 (0.0-0.9) th/mm3 Eos # (Auto) 0.1 (0.0-0.4) th/mm3 Baso # (Auto) 0.0 (0.0-0.2) th/mm3 Comprehensive Metabolic Panel 10/26/17 Range/Units 05:40 Sodium 143 (136-145) meq/L Potassium 3.7 (3.5-5.1) meq/L Chloride 108 H (98-107) meq/L Carbon Dioxide 28.1 (21.0-32.0) meq/L BUN 9 (7-18) mg/dL Creatinine 0.93 (0.50-1.00) mg/dL Calcium 7.9 L (8.5-10.1) mg/dL AST 12 L (15-37) U/L ALT 23 (10-53) U/L Alkaline Phosphatase 88 (45-117) U/L Total Protein 6.5 D (6.4-8.2) g/dL Albumin 3.1 L D (3.4-5.0) g/dL Intake and Output 10/26/17 10/26/17 10/27/17 14:59 22:59 06:59 Intake Total 200 / 200 980 / 980 1000 / 1000 Output Total 1350 / 1350 Balance 200 / 200 -370 / -370 1000 / 1000 Intake: IV 200 / 200 500 / 500 1000 / 1000 Heparin/D5W 25,000 U/250 mL 25, 200 / 200 000 unit In 250 ml @ Per Protocol IV.CONT TITRATE PRN Rx #:[id number] NS Inj 500 ML @ 150 mls/hr IV. 500 / 500 1000 / 1000 CONT .Q3H20M [facility] Rx#:[id number] Oral 480 / 480 Output: Urine 1350 / 1350 Other: Date of Last Bowel Movement 10/25/17 10/25/17 10/25/17 EKG interpretations - Dysrhythmias Sinus rhythms and dysrhythmias: sinus bradycardia (< 50 bpm) Assessment and Plan - Plan Chest pain HTN Bradycardia We will check TTE and proceed with a LHC via the right radial artery given her history of a positive stress test (which could be related to artifact). Given her bradycardia we will hold coreg and see the patient's BP on amlodopine. Given her allergy to SILVANO-i, we could consider HCTZ for Bp control. She will need followup as an outpatient.
[2017-10-27 07:33] LABS: Hematocrit 30.3 % (35.0-46.0); Hemoglobin 10.2 gm/dL (11.6-15.3); Mean Corpuscular HGB Conc 33.6 % (32.0-36.0); Mean Corpuscular Hemoglobin 26.3 pg (27.0-34.0); Mean Corpuscular Volume 78.5 fL (80.0-100.0); Mean Platelet Volume 8.9 fL (7.0-11.0); Platelet Count 205 th/mm3 (150-450); Red Blood Count 3.86 mil/mm3 (4.00-5.30); Red Cell Distribution Width 16.9 % (11.6-17.2); White Blood Count 6.3 th/mm3 (4.0-11.0)
[2017-10-27 07:39] VITALS: BP 137/84; RESP 18; TEMP 98.5
[2017-10-27 08:05] LABS: Chol/HDL Ratio 2.33 Ratio; HDL Cholesterol 43.3 mg/dL (40.0-60.0)
[2017-10-27] MEDS: amLODIPine 10 MG Tablet PO SCH (08:10)
--- NOTE | 2017-10-27 10:12 | P.DS ---
Date of admission: 10/25/17 21:24 Primary care physician: Tiffany Whitaker Anticipated date of discharge: 10/27/17 Brief History from admission: 62 y/o female with a history of HLD, and HTN presented to the ED with complaints of chest pain. Patient states she has been having intermitting, 10/10 , mid sternal chest pain, with radiation to left arm, with associated sob and weakness since March. She had a stress test in March which showed moderately large anterior reversible defect according to [facility] records, at this time she was scared to have a cath done and declined it and never followed up. Her brother during a cardiac cath and it scared her to have one done. Since then she has been have the chest pain and just dealing with in. She is not very compliant with her BP and cholesterol Meds at home. Denies any dizziness, fever, chills, nausea or vomiting. DS: Summary Hospital Course: While in hospital, patient was treated for: Unstable angina r/o ACS CTA negative for PE -Trend troponin, serial EKGs -Nitropaste -Heparin drip off -Cardiology consulted and patient had a clean left heart catheterization performed yesterday October 26, 2017 -LDL 43 Hypertension, chronic, currently elevated, patient in non compliant -continue Norvasc, however Coreg 3.125 BID discontinued due to bradycardia -Monitor vitals HLD, chronic -LDL 43 DVT prophylaxis: Heparin - Time Spent with Patient Total time spent providing and/or coordinating discharge services: Less than 30 minutes - Quality: VTE Deep Vein Thrombosis/Pulmonary Embolism Present on Admission: No Exam Vital signs: Vital Signs 10/26/17 11:00 10/26/17 12:00 10/26/17 13:00 Temperature 98.3 F Pulse Rate 72 51 L 84 Respiratory Rate 18 Blood Pressure 119/78 Pulse Oximetry 99 10/26/17 14:00 10/26/17 15:00 10/26/17 16:00 Temperature 98.0 F Pulse Rate 64 56 L 51 L Respiratory Rate 18 Blood Pressure 149/92 H Pulse Oximetry 100 10/26/17 17:00 10/26/17 18:00 10/26/17 19:00 Temperature 97.8 F Pulse Rate 73 75 56 L Respiratory Rate 18 Blood Pressure 140/86 Pulse Oximetry 96 10/26/17 20:00 10/26/17 21:00 10/26/17 22:00 Temperature Pulse Rate 54 L 62 64 Respiratory Rate Blood Pressure Pulse Oximetry 100 10/26/17 23:00 10/27/17 00:00 10/27/17 01:00 Temperature 98.4 F Pulse Rate 66 69 60 Respiratory Rate 19 Blood Pressure 112/72 Pulse Oximetry 99 10/27/17 02:00 10/27/17 03:00 10/27/17 04:00 Temperature 97.8 F Pulse Rate 87 53 L 53 L Respiratory Rate 19 Blood Pressure 113/76 Pulse Oximetry 100 10/27/17 05:00 10/27/17 06:00 10/27/17 07:00 Temperature 98.5 F Pulse Rate 67 55 L 54 L Respiratory Rate 18 Blood Pressure 137/84 Pulse Oximetry 100 10/27/17 08:00 10/27/17 08:42 10/27/17 09:00 Temperature Pulse Rate 62 63 Respiratory Rate Blood Pressure Pulse Oximetry 100 100 Intake & Output 10/26/17 10/27/17 10/27/17 18:59 06:59 18:59 Intake Total 1180 / 1180 2420 / 2420 Output Total 1350 / 1350 1350 / 1350 Balance -170 / -170 1070 / 1070 Weight 121.7 kg Intake: IV 700 / 700 1500 / 1500 Heparin/D5W 25,000 U/250 mL 25, 200 / 200 000 unit In 250 ml @ Per Protocol IV.CONT TITRATE PRN Rx #:[id number] NS Inj 500 ML @ 150 mls/hr IV. 500 / 500 1500 / 1500 CONT .Q3H20M [facility] Rx#:[id number] Oral 480 / 480 920 / 920 Output: Urine 1350 / 1350 1350 / 1350 Other: # Voids 3 Date of Last Bowel Movement 10/25/17 10/25/17 10/25/17 Narrative: GENERAL: NAD SKIN: Warm and dry. HEAD: Normocephalic. EYES: No scleral icterus. No injection or drainage. NECK: Supple, trachea midline. No JVD or lymphadenopathy. CARDIOVASCULAR: Regular rate and rhythm without murmurs, gallops, or rubs. RESPIRATORY: Breath sounds equal bilaterally. No accessory muscle use. GASTROINTESTINAL: Abdomen soft, non-tender, nondistended. MUSCULOSKELETAL: No cyanosis, or edema. BACK: Nontender without obvious deformity. No CVA tenderness. Results Procedures completed during hospitalization: Left heart catheterization Labs on day of discharge: Labs from last 24 hours 10/27/17 10/27/17 10/27/17 06:11 06:11 06:11 WBC 6.3 RBC 3.86 L Hgb 10.2 L Hct 30.3 L MCV 78.5 L MCH 26.3 L MCHC 33.6 RDW 16.9 Plt Count 205 MPV 8.9 APTT 27.3 D Triglycerides 72 Cholesterol 101 L LDL Cholesterol, Calc 43 HDL Cholesterol 43.3 Cholesterol/HDL Ratio 2.33 10/26/17 12:07 WBC RBC Hgb Hct MCV MCH MCHC RDW Plt Count MPV APTT 58.3 H Triglycerides Cholesterol LDL Cholesterol, Calc HDL Cholesterol Cholesterol/HDL Ratio - Impressions ITS Impressions Chest X-Ray 10/25/17 16:33 CONCLUSION: No acute disease Chest CTA 10/25/17 18:09 CONCLUSION: No pulmonary embolus. Discharge Plan - Discharge Disposition Patient Disposition: 01 Discharge Home - Discharge Condition Condition: Good - Discharge Order Discharge Orders: Discharge Order (Routine); Ordered 10/27/17 Ordered By: Vinod Viera - Physicians Team Primary Care Provider: Tiffany Whitaker Attending Provider: Vinod Viera Other Providers: Venu Almeida MD ; [email or web address]
[2017-10-27 10:16] VITALS: PULSE 74
== END 2017-10-27 10:52 | disposition home or self-care (01) ==
LOC: NEPE 15:52 → NEDA 21:20 → INTOOBSV 21:20 → HCIS 22:47
PROVIDERS: ADMIT Hospitalist; ATTEND Hospitalist